=== PATIENT | male | born 1955 | race Caucasian/White ===

== ENCOUNTER 2016-08-08 14:13 | Inpatient (IN) | payer MEDICARE, MEDICAID ==
[~2016-08-08] VITALS: Ht 160 cm; Wt 78.3 kg
[2016-08-08 14:20] VITALS: BP 136/94; PULSE 131; RESP 24; TEMP 98; O2SAT 99
[2016-08-08] MEDS ORDERED: LORazepam 2 MG/ML VIAL IM ONE (14:30)
[2016-08-08] MEDS ORDERED: HALOPERIDOL LACTATE 5 MG/ML AMP IM ONE (14:30)
[2016-08-08] MEDS ORDERED: SODIUM CHLOR 0.9% 1000 ML INJ 1,000 ML IV ONE (14:45)
--- NOTE | 2016-08-08 14:47 | PD ---
HPI Chief Complaint: Altered Mental Status Time Seen by Provider: 14:27 Travel History International Travel<30 days: No Contact w/Intl Traveler<30days: No Traveled to known affect area: No History of Present Illness HPI This patient was found wandering around the roadside. He appears very psychotic and can provide no history or review of systems. He has rapid pressured speech and is talking nonsense. 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 He has never been here before. ON LICENSE OF [facility] Social History Alcohol Use: No Tobacco Use: No Substance Use: No Allergies-Medications (Allergen,Severity, Reaction): Coded Allergies: UNOBTAINABLE (Unverified , 08/08/16) Review of Systems ROS Limitations: Clinical Condition, Altered Mental Status, Uncooperative, Poor Historian Physical Exam Narrative GENERAL: Disheveled confused well-developed patient who appears psychotic . SKIN: Focused skin assessment reveals no rash and nodules. Skin is Warm and dry. HEAD: Atraumatic. Normocephalic. EYES: Pupils equal and round. No scleral icterus. No injection or drainage. ENT: No nasal bleeding or discharge. Mucous membranes pink and dry . NECK: Trachea midline. No JVD. CARDIOVASCULAR: Regular rate and rhythm. No murmur appreciated. Tachycardic at 120 RESPIRATORY: No accessory muscle use. Clear to auscultation. Breath sounds equal bilaterally. GASTROINTESTINAL: Abdomen soft, non-tender, nondistended. Hepatic and splenic margins not palpable. MUSCULOSKELETAL: No obvious deformities. No clubbing. No cyanosis. No edema. NEUROLOGICAL: Awake and very animated. No obvious cranial nerve deficits. Impossible to accurately gauge motor strength or sensation. Rapid pressured and very difficult to understand speech. PSYCHIATRIC: Very agitated mood and affect; insight and judgment are extremely poor. Data Data Last Documented VS Vital Signs Date Time Temp Pulse Resp B/P Pulse Ox O2 Delivery O2 Flow Rate FiO2 08/08/16 14:20 98.0 131 24 136/94 99 Orders Lorazepam Inj (Ativan Inj) (08/08/16 14:30) Haloperidol Inj (Haldol Inj) (08/08/16 14:30) Iv Access Insert/Monitor (08/08/16 14:29) Complete Blood Count With Diff (08/08/16 14:29) Basic Metabolic Panel (Bmp) (08/08/16 14:29) Alcohol (Ethanol) (08/08/16 14:29) Drug Screen, Random Urine (08/08/16 14:29) Sodium Chlor 0.9% 1000 Ml Inj (Ns 1000 M (08/08/16 14:45) Ct Brain W/O Iv Contrast(Rout) (08/08/16 ) Midazolam Inj (Versed Inj) (08/08/16 16:45) Midazolam Inj (Versed Inj) (08/08/16 16:36) Psych Screen (08/08/16 17:16) Labs Laboratory Tests Test 08/08/16 08/08/16 08/08/16 14:45 15:30 15:55 White Blood Count 12.8 TH/MM3 Red Blood Count 4.99 MIL/MM3 Hemoglobin 15.6 GM/DL Hematocrit 45.8 % Mean Corpuscular Volume 91.7 FL Mean Corpuscular Hemoglobin 31.3 PG Mean Corpuscular Hemoglobin 34.2 % Concent Red Cell Distribution Width 13.0 % Platelet Count 340 TH/MM3 Mean Platelet Volume 7.6 FL Neutrophils (%) (Auto) 85.5 % Lymphocytes (%) (Auto) 8.0 % Monocytes (%) (Auto) 6.2 % Eosinophils (%) (Auto) 0.0 % Basophils (%) (Auto) 0.3 % Neutrophils # (Auto) 10.9 TH/MM3 Lymphocytes # (Auto) 1.0 TH/MM3 Monocytes # (Auto) 0.8 TH/MM3 Eosinophils # (Auto) 0.0 TH/MM3 Basophils # (Auto) 0.0 TH/MM3 CBC Comment DIFF FINAL Differential Comment Urine Opiates Screen NEG Urine Barbiturates Screen NEG Urine Amphetamines Screen NEG Urine Benzodiazepines Screen NEG Urine Cocaine Screen NEG Urine Cannabinoids Screen NEG Sodium Level 140 MEQ/L Potassium Level 3.5 MEQ/L Chloride Level 107 MEQ/L Carbon Dioxide Level 18.9 MEQ/L Anion Gap 14 MEQ/L Blood Urea Nitrogen 31 MG/DL Creatinine 1.03 MG/DL Estimat Glomerular Filtration 74 ML/MIN Rate Random Glucose 84 MG/DL Calcium Level 8.0 MG/DL Ethyl Alcohol Level LESS THAN 3 MG/DL MDM Medical Decision Making Medical Screen Exam Complete: Yes Emergency Medical Condition: Yes Medical Record Reviewed: Yes Differential Diagnosis Psychosis, alcohol or drug withdrawal, dehydration, brain tumor Narrative Course I have reviewed the patient's electronic medical record. Patient is never been here before For the patient's own safety is placed in leather restraints. He is appearing psychotic and actively flailing and uncooperative. I gave him injection of Haldol and Ativan 1 L normal saline IV CBC is normal Metabolic profile is normal Alcohol level is negative Tox screen is negative Brain CT is normal Patient is now resting comfortably and out of restraints I can't find any medical reason for his psychotic-appearing behavior. He does not appear to be in withdrawal. His workup is negative I've ordered psychiatric evaluation. When I ask him if he is agreeable he nods. I think the best thing for this patient is to be a psychiatric admission. Disposition will be per psychiatry after screening Diagnosis Primary Impression: Psychosis Qualified Code: F29 - Psychosis, unspecified psychosis type Ming Callahan MD Aug 08, 2016 14:47
[2016-08-08 15:09] LABS: AUTOMATED NEUTROPHIL # 10.9 TH/MM3 (1.8-7.7); BASOPHIL % 0.3 % (0.0-2.0); HEMATOCRIT 45.8 % (39.0-51.0); HEMO FLAGS DIFF FINAL; MEAN CELL VOLUME 91.7 FL (80.0-100.0); MEAN CORPUSCULAR HEMOGLOBIN 31.3 PG (27.0-34.0); MEAN CORPUSCULAR HGB CONC 34.2 % (32.0-36.0); MONO % 6.2 % (0.0-8.0); NEUT % 85.5 % (16.0-70.0); PLATELET COUNT 340 TH/MM3 (150-450); RED BLOOD COUNT 4.99 MIL/MM3 (4.50-5.90); WHITE BLOOD COUNT 12.8 TH/MM3 (4.0-11.0)
[2016-08-08 16:30] LABS: ANION GAP 14 MEQ/L (5-15); BICARBONATE 18.9 MEQ/L (21.0-32.0); BLOOD UREA NITROGEN 31 MG/DL (7-18); CHLORIDE 107 MEQ/L (98-107); GLOMERULAR FILTRATION RATE 74 ML/MIN (>89); POTASSIUM 3.5 MEQ/L (3.5-5.1); SODIUM (NA) 140 MEQ/L (136-145)
[2016-08-08 16:33] LABS: AMPHETAMINE, URINE NEG (NEG); BARBITURATES, URINE NEG (NEG); COCAINE, URINE NEG (NEG)
[2016-08-08] MEDS ORDERED: MIDAZOLAM HCL 5 MG/ML VIAL (1 ML) ONE (16:36)
[2016-08-08] MEDS ORDERED: MIDAZOLAM HCL 5 MG/5 ML VIAL IV PUSH ONE (16:45)
--- NOTE | 2016-08-08 17:01 | RADRPT ---
EXAM DATE/TIME: 08/08/2016 16:45 [facility] COMPARISON: No previous studies available for comparison. INDICATIONS : Altered mental status. RADIATION DOSE: 56.35 CTDIvol (mGy) MEDICAL HISTORY : Non-responsive. SURGICAL HISTORY : Non-responsive. ENCOUNTER: Initial ACUITY: 1 day PAIN SCALE: Non-responsive LOCATION: Bilateral head TECHNIQUE: Multiple contiguous axial images were obtained of the head. Using automated exposure control and adj ustment of the mA and/or kV according to patient size, radiation dose was kept as low as reasonably a chievable to obtain optimal diagnostic quality images. FINDINGS: There is no evidence for intracranial hemorrhage, mass effect, mass lesions, edema, or extra-axial fl uid collections. The visualized bony structures appear intact. The ventricles are normal size for t he patient's age. There are no signs of acute infarction for technique. CONCLUSION: Unremarkable study. Rogelio Green MD on August 08, 2016 at 16:57 Board Certified Radiologist. This report was verified electronically.
[2016-08-08 19:05] VITALS: BP 151/88; PULSE 98; RESP 18; O2SAT 96
[2016-08-08 22:28] VITALS: BP 133/60; PULSE 80; RESP 18; O2SAT 99
[2016-08-09 02:09] VITALS: BP 143/74; PULSE 102; RESP 18
[2016-08-09 06:12] VITALS: BP 123/63; PULSE 97; RESP 18
[2016-08-09] MEDS ORDERED: OLANZapine IM 10 MG VIAL IM ONE (08:00)
[2016-08-09] MEDS: OLANZapine 5 MG TAB PO SCH ×2 (09:00→21:00)
[2016-08-09] MEDS ORDERED: LORazepam 2 MG/ML VIAL IM PRN (09:15)
[2016-08-09] MEDS ORDERED: ALUMINUM/MAGNESIUM/SIMETH 30 ML CUP PO PRN (09:15)
[2016-08-09] MEDS: NICOTINE 21 MG/24 HR PATCH T-DERMAL SCH (09:15)
[2016-08-09] MEDS ORDERED: MAGNESIUM HYDROXIDE SUSP 30 ML CUP PO PRN (09:15)
[2016-08-09] MEDS ORDERED: LORazepam 0.5 MG TAB PO PRN (09:15)
[2016-08-09] MEDS ORDERED: ACETAMINOPHEN 325 MG TAB PO PRN (09:15)
--- NOTE | 2016-08-09 09:24 | HHI.HP ---
Provisional Diagnosis Admission Date [place] I. Unspecified psychosis, rule out bipolar disorder, manic episode, with psychosis , rule out schizoaffective disorder, rule out medically induced psychosis [place] II. Deferred [place] III. unknown Certification of Person's Competence To Provide Express and Informed Consent I have personally examined Kimmy Sheridan , a person being served at [facility] on, August 09, 2016 09:09. Express and informed consent means consent voluntarily given in writing, by a competent person, after sufficient explanation and disclosure of the subject matter involved to enable the person to make a knowing and willful decision without any element of force, fraud, deceit, duress, or other form of constraint or coercion. This person is 18 years of age or older, is not now known to be incompetent to consent to treatment with a guardian advocate, and does not have a health care surrogate or proxy currently making medical treatment decisions. I have found this person to be one of the following: [] Competent to provide express and informed consent, as defined above, for voluntary admission to this facility and is competent to provide express and informed consent for treatment. He/she has the consistent capacity to make well reasoned, willful, and knowing decisions concerning his or her medical or mental health treatment. The person fully and consistently understands the purpose of the admission for examination/placement and is fully capable of personally exercising all rights assured under [place] [] Incompetent to provide express and informed consent to voluntary admission, and this is incompetent to provide express and informed consent to treatment. The person must be transferred to involuntary status and a petition for a guardian advocate filed with the Circuit Court. [X] Refusing to provide express and informed consent to voluntary admission but is competent to provide express and informed consent for treatment. The person must be discharged or transferred to involuntary status. Form shall be completed within 24 hours of a person's arrival at the receiving facility and filed in the clinical record of each person: 1. Admitted on a voluntary basis 2. Permitted to provide express and informed consent to his/her own treatment 3. Allowed to transfer from involuntary to voluntary status 4. Prior to permitting a person to consent to his or her own treatment after having been previously found incompetent to consent to treatment. History of Present Illness Capacity: Has Capacity HPI The patient is a 60-year-old man, well known social/medical, psychiatric history, patient was Sanchez acted by police due to disorganized behavior in the street. On psychiatric evaluation patient is restless, very disorganized, tangential, talkative, with marked pressured speech, labile, affect, also paranoid and grandiose delusions. Patient explains that he comes from [place], he says that he took a bus in [place] and came to [place] " because I wanted to see the [place]". Patient says that he doesn't have psychiatric history, he denies bipolar disorder he denies schizophrenia and he says that he hates psychiatric. When was asked about medical history he says that he has history of TBI, and he has been taking steroids, but he doesn't clarify. Patient denies taking psychotropics. He described his mood as extremely happy, he says that he is God and the [place] of the universe, for this reason he doesn't need to take any medications, at some point he also stated that he is better to everybody to be naked he was ready actually to disrobe. Patient was not redirectable verbally, extremely intrusive and agitated. Finally was medicated with olanzapine 10 mg IM to help him to calm down. Review of Systems ROS Limitations: Uncooperative Endocrine: DENIES: Heat/cold intolerance, Polydipsia, Polyuria, Polyphagia Eyes: DENIES: Blurred vision, Diplopia, Eye inflammation, Eye pain, Vision loss , Photosensitivity, Double Vision Ears, nose, mouth, throat: DENIES: Tinnitus, Hearing loss, Vertigo, Nasal discharge, Oral lesions, Throat pain, Hoarseness, Ear Pain, Running Nose, Epistaxis, Sinus Pain, Toothache, Odynophagia Respiratory: DENIES: Apneas, Cough, Snoring, Wheezing, Hemoptysis, Sputum production, Shortness of breath Cardiovascular: DENIES: Chest pain, Palpitations, Syncope, Dyspnea on Exertion , PND, Lower Extremity Edema, Orthopnea, Claudication Gastrointestinal: DENIES: Abdominal pain, Black stools, Bloody stools, Constipation, Diarrhea, Nausea, Vomiting, Difficulty Swallowing, Anorexia Genitourinary: DENIES: Sexual dysfunction, Urinary frequency, Urinary incontinence, Urgency, Hematuria, Dysuria, Nocturia, Penile Discharge, Testicular Pain, Testicular Swelling Musculoskeletal: DENIES: Joint pain, Muscle aches, Stiffness, Joint Swelling, Back pain, Neck pain Integumentary: DENIES: Abnormal pigmentation, Nail changes, Pruritus, Rash Hematologic/lymphatic: DENIES: Bruising, Lymphadenopathy Immunologic/allergic: DENIES: Eczema, Urticaria Neurologic: DENIES: Abnormal gait, Headache, Localized weakness, Paresthesias, Seizures, Speech Problems, Tremor, Poor Balance Psychiatric: DENIES: Anxiety, Confusion, Mood changes, Depression, Hallucinations, Agitation, Suicidal Ideation, Homicidal Ideation, Delusions Substance Abuse History Drugs/Alcohol past 12 months He denies, toxicology is negative and BAL is negative Past Family Social History Coded Allergies: Penicillin (Verified Allergy, Unknown, 08/09/16) No Active Prescriptions or Reported Meds Current Medications Medications (Trade) Dose Ordered Sig/Elvira Route Start Time Stop Time Status Last Admin (ZyPREXA) 5 mg BID PO 08/09/16 09:00 Family History Unknown Social History Patient says that he is from [place], but he doesn't cooperate and provide more information Physical Exam Patient is restless, agitated, Vital Signs Vital Signs Date Time Temp Pulse Resp B/P Pulse Ox O2 Delivery O2 Flow Rate FiO2 08/09/16 06:12 97 18 123/63 08/08/16 22:28 99 Room Air 08/08/16 14:20 98.0 Lab Results BAL is negative, toxicology is negative, CT scan of the brain shows no acute abnormalities, WBC is 12.8 Mental Status Examination Appearance Short stature overweight man, [facility], restless, poorly cooperative, no reliable Speech: Rapid, Incoherent (at times), Fast, Other (pressure) Orientation: Person Memory: Impaired (describe) Thought Process: Loose Association, Tangential Thought Content: Bizarre thinking, Paranoid Hallucination Type: None Suicidal Ideation: No Homicidal Ideation: No Insight: Poor Affect: Irritable, Other Affect if Inappropriate: Labile Mood: Angry Motor Activity: Normal gait Assessment & Plan Problem List: (1) Unspecified psychosis Assessment & Plan: On psychiatric evaluation patient is acutely manic, disorganized, tangential very paranoid, with marked pressured and at times incoherent speech, restlessness, agitation, disruptive in the unit. Patient is unable to provide any significant or reliable information about his social, psychiatric or medical history. At this moment is impossible to define the etiology of current presentation, further medical workup is needed in order to rule out medical causes of psychosis/cindy. A relapse of a previously diagnosed bipolar disorder/or primary psychotic disorder is also possible. Patient definitely represents an acute danger to self and others and needs psychiatric hospitalization for stabilization and safety. Will start olanzapine 5 mg twice a day for psychosis/cindy. Will order EKG, for QTC baseline. Will consult hospitalist to do a thorough medical investigation. Will consider psychiatry for second opinion. insulation worker interior surface intervention to help with collateral information, counseling, psychosocial assessment, to start discharge planning. We'll take safety measures as needed. We will discuss which are she nurse the convenience of acute inpatient versus [facility] unit. ICD Code: F29 Assessment & Plan Estimated LOS: days Ronal Avila MD August 09, 2016 09:24
[2016-08-09 10:46] VITALS: BP 135/60; PULSE 88; RESP 18; O2SAT 100
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
[2016-08-09] MEDS: LORazepam 1 MG TAB PO PRN (16:07)
[2016-08-09 16:40] VITALS: BP 120/78; PULSE 92; RESP 20; TEMP 98; O2SAT 94
[2016-08-09] MEDS ORDERED: diphenhydrAMINE HCL 50 MG/ML VIAL ONE (18:40)
[2016-08-09] MEDS ORDERED: HALOPERIDOL LACTATE 5 MG/ML AMP ONE (18:40)
[2016-08-09] MEDS ORDERED: LORazepam 2 MG/ML VIAL ONE (18:43)
[2016-08-09] MEDS ORDERED: HALOPERIDOL LACTATE 5 MG/ML AMP IM PRN (19:00)
[2016-08-09] MEDS ORDERED: LORazepam 2 MG/ML VIAL IM ONE (19:00)
[2016-08-09] MEDS ORDERED: HALOPERIDOL LACTATE 5 MG/ML AMP IM ONE (19:00)
[2016-08-09] MEDS ORDERED: diphenhydrAMINE HCL 50 MG/ML VIAL IM ONE (19:00)
[2016-08-09] MEDS: REMOVE OLD NICODERM (NICOTINE) PATCH T-DERMAL SCH (21:00)
[2016-08-10 05:56] VITALS: BP 138/79; PULSE 97; RESP 18; TEMP 97.2; O2SAT 96
[2016-08-10] MEDS: NICOTINE 21 MG/24 HR PATCH T-DERMAL SCH (09:00)
--- NOTE | 2016-08-10 09:35 | PD.CONS ---
Provisional Diagnosis Admission Date August 09, 2016 at 09:08 Dorothy I. 1. Other psychotic disorder Suspect primary psychotic disorder, likely schizophrenia Rule-out BPAD, mixed or manic with psychotic features Rule-out psychosis due to [facility] [place] II. Deferred Dorothy V. GAF is 31 presently History of Present Illness Service Psychiatry Consult Requested By Dr. Avila Reason for Consult Second opinion Primary Care Physician Unknown HPI From Dr. Avila's H&P: The patient is a 60-year-old man, well known social/medical, psychiatric history, patient was [place] acted by police due to disorganized behavior in the street. On psychiatric evaluation patient is restless, very disorganized, tangential, talkative, with marked pressured speech, labile, affect, also paranoid and grandiose delusions. Patient explains that he comes from [place], he says that he took a bus in [place] and came to [place] " because I wanted to see the 5 [place]". Patient says that he doesn't have psychiatric history, he denies bipolar disorder he denies schizophrenia and he says that he hates psychiatric. When was asked about medical history he says that he has history of TBI, and he has been taking steroids, but he doesn't clarify. Patient denies taking psychotropics. He described his mood as extremely happy, he says that he is God and the [place] of the universe, for this reason he doesn't need to take any medications, at some point he also stated that he is better to everybody to be naked he was ready actually to disrobe. Patient was not redirectable verbally, extremely intrusive and agitated. Finally was medicated with olanzapine 10 mg IM to help him to calm down. On my examination today: Patient seen and examined with counselor and nurse. Chart reviewed. Patient was agitated on the floor yesterday and required Haldol, Ativan and Benadryl ETO. Case discussed with nurse, counselor and recreation therapist in treatment team. On my evaluation today, the patient presents as extremely rambling and disorganized in his thought process. Much of his speech is word salad. He denies audiovisual hallucinations but appears internally preoccupied. He describes his mood as "tired." He denies any suicidal or homicidal ideation but seems distinctly unreliable contract for safety in his present state. He does seem to endorse feelings of thought manipulation. He says "I just need a form saying I can be my own payee." Psychiatric interview is limited by his current degree of psychiatric impairment. Nursing staff provides me with the number for a niece, Melody, . This number rings to voicemail, which is full and not accepting new messages. I also try to call Stephie Roy in [place], [place], . She reports that she acted as patient's payee while he was part of the ACT team in [place]. She reports that he moved to [place] with Melody about 1 month ago against the ACT team's advice. She does note that the patient is on long-acting Invega and would be due for a dose this week. She is otherwise unsure of his clinical details and refers me to Luz Marie with the ACT team in [place] for this information at [phone]. I have left a voicemail for Ms. Marie requesting a call back. Review of Systems ROS Limitations: Psychotic, Poor Historian Other ROS limited because of patient's degree of thought disorder. He does have a non -productive cough. Past Family Social History Coded Allergies: Penicillin (Verified Allergy, Unknown, 08/09/16) Past Medical History Patient may have had some sort of history of head injury; unclear. No Active Prescriptions or Reported Meds Current Medications Medications (Trade) Dose Ordered Sig/Elvira Route Start Time Stop Time Status Last Admin (ZyPREXA) 5 mg BID PO 08/09/16 09:00 Hold (Ativan) 1 mg Q6H PRN PO 08/09/16 09:15 08/09/16 16:07 (Ativan Inj) 1 mg Q6H PRN IM 08/09/16 09:15 (Ativan) 0.5 mg Q12H PRN PO 08/09/16 09:15 (Ativan Inj) 0.5 mg Q12H PRN IM 08/09/16 09:15 (Tylenol) 650 mg Q4H PRN PO 08/09/16 09:15 (Milk Of Magnesia Liq) 30 ml DAILY PRN PO 08/09/16 09:15 (Mag-Al Plus Susp Liq) 30 ml Q6H PRN PO 08/09/16 09:15 (Habitrol 21 Mg Patch.24 Hr) 1 patch DAILY T-DERMAL 08/09/16 09:15 Miscellaneous Information 1 HS T-DERMAL 08/09/16 21:00 Family History Unable to obtain from patient Social History Unable to obtain from patient. Patient's Strengths (min. 2) In a monitored setting. Appears to have support network in [place]. Physical Exam Physical examination completed by hospitalist assessment consultant. On my examination today, the patient appears to be in no acute physical distress. No motor abnormalities noted. Laboratories and vital signs reviewed: Vital Signs Vital Signs Date Time Temp Pulse Resp B/P Pulse Ox O2 Delivery O2 Flow Rate FiO2 08/10/16 05:56 97.2 97 18 138/79 96 08/09/16 10:46 Room Air Lab Results Item Value Date Time White Blood Count 12.8 TH/MM3 H 08/08/16 1445 Hemoglobin 15.6 GM/DL 08/08/16 1445 Platelet Count 340 TH/MM3 08/08/16 1445 Sodium Level 140 MEQ/L 08/08/16 1555 Potassium Level 3.5 MEQ/L 08/08/16 1555 Chloride Level 107 MEQ/L 08/08/16 1555 Carbon Dioxide Level 18.9 MEQ/L L 08/08/16 1555 Anion Gap 14 MEQ/L 08/08/16 1555 Blood Urea Nitrogen 31 MG/DL H 08/08/16 1555 Creatinine 1.03 MG/DL 08/08/16 1555 Estimat Glomerular Filtration Rate 74 ML/MIN L 08/08/16 1555 Random Glucose 84 MG/DL 08/08/16 1555 Ethyl Alcohol Level LESS THAN 3 MG/DL 08/08/16 1555 Urine Opiates Screen NEG 08/08/16 1530 Urine Barbiturates Screen NEG 08/08/16 1530 Urine Amphetamines Screen NEG 08/08/16 1530 Urine Benzodiazepines Screen NEG 08/08/16 1530 Urine Cocaine Screen NEG 08/08/16 1530 Urine Cannabinoids Screen NEG 08/08/[address] 08/08/16 0000 Signed Impressions: Service Date/Time: Monday, August 08, 2016 16:45 - CONCLUSION: Unremarkable study. Rogelio Green MD Mental Status Examination Patient is in hospital gown. He is disheveled in his grooming and hygiene are poor. He is awake and alert and oriented to person, place and date. No evidence of delirium at this time. No abnormal motor movements noted. Speech is somewhat dysarthric but not particularly pressured. Language is bordering on word salad. Fund of knowledge is difficult to assess, as is memory given his current degree of thought disorder. Mood seems fair to somewhat dysphoric, and affect is blunted tending towards flat. Thought process disorganized. Associations somewhat loose. Unclear if there is some underlying delusional material. Patient appears internally preoccupied. Denies suicidal or homicidal ideation but is unreliable to contract for safety in his present state. Insight and judgment are currently poor. Assessment & Plan Problem List: (1) Psychosis ICD Code: F29 Assessment & Plan Given the circumstances of patient's presentation here and his presentation on my examination today, I concur with Dr. Avila that the patient meets criteria for involuntary psychiatric hospitalization under the Sanchez act. I completed second opinion paperwork. I additionally believe that the patient is not presently capacitated to consent for medications or medical treatment and so have requested a healthcare surrogate and guardian advocate. I will be assuming primary care of this patient. Given reported use of Invega, I will start the patient on Invega 6mg PO at HS pending further collateral and pending approval of HCS. Ativan as needed for anxiety, Cogentin as needed for EPS, Ambien as needed for sleep. Hospitalist assessment consultant input noted and appreciated. Check a CBC and a CMP. Continue to monitor on the high acuity unit. Continue other medications and care as ordered. Discharge Planning Pending psychiatric stabilization. Patient requires psychiatric hospitalization at this time for impairments in self-care, impairments in reality construction, medication changes and high risk for decompensation in a less restrictive environment. Request HC Surrog/Guard Advoc?: Yes Problem Qualifiers (1) Psychosis: Qualified Code: F28 - Other psychotic disorder not due to substance or known physiological condition Dominick Moreno MD August 10, 2016 09:35
[2016-08-10] MEDS ORDERED: BENZTROPINE MESYLATE 1 MG TAB PO PRN (12:15)
[2016-08-10] MEDS ORDERED: BENZTROPINE MESYLATE 2 MG/2 ML VIAL IM PRN (12:15)
[2016-08-10 18:10] VITALS: BP 146/81; PULSE 103; RESP 18; TEMP 97.6; O2SAT 97
[2016-08-10] MEDS ORDERED: PALIPERIDONE ER 6 MG TAB PO SCH (21:00)
[2016-08-10] MEDS: REMOVE OLD NICODERM (NICOTINE) PATCH T-DERMAL SCH (21:00)
[2016-08-11 06:04] VITALS: BP 146/83; PULSE 92; RESP 16; TEMP 98.5; O2SAT 95
[2016-08-11] MEDS: NICOTINE 21 MG/24 HR PATCH T-DERMAL SCH (09:00)
--- NOTE | 2016-08-11 11:38 | HHI.PYPN ---
Subjective Remarks Patient seen and examined with counselor. Chart reviewed. Case discussed with nursing staff reports that the patient has been in generally good behavioral control but became irate when the binder stripper machine came to draw his blood and was cursing at the binder stripper machine. On my examination today, the patient remains fairly disorganized. He says "I need some passes to get my clothes back." He alludes to seeing "people's faces" but can't describe this in any more detail. He then points to his abdomen and says, "that thing, the tubes, stomach vagina that sperm go in." Unclear what this is in relation to, but the patient does not appear to be in any physical distress. Counselor has spoken with patient's niece and shared that collateral with me. Psychotropics remain on hold awaiting consent. Review of Systems ROS Limitations: Poor Historian Except as stated in HPI: all other systems reviewed are Neg Objective Alert: Yes [place]: Person Mood: Calm (presently) Affect: Blunted Memory Intact: Comment (not formally assessed) Hallucinations: Other (no AVH) Delusions: Yes Delusion Type: Other (bizarre) Suicidal: Ideation (no SI) Homicidal: Ideation (no HI) Insight/Judgment Poor Remarks No motor abnormalities noted. Thought process disorganized. Speech rambling. Labs Labs reviewed. Refused labs this morning. Vitals/IOs Vital Signs Date Time Temp Pulse Resp B/P Pulse Ox O2 Delivery O2 Flow Rate FiO2 08/11/16 06:04 98.5 92 16 146/83 95 08/09/16 10:46 Room Air Assessment & Plan Problem List: (1) Psychosis ICD Code: F29 Assessment & Plan Psychotropics remain on hold awaiting consent. Continue to monitor on the high acuity unit. Continue other medications and care as ordered. Justification for Cont. Inpt. Impairment in reality construction. Impairment in social function. High risk for decompensation and a restrictive environment. Discharge Planning Pending stabilization. Request HC Surrog/Guard Advoc?: Yes Problem Qualifiers (1) Psychosis: Qualified Code: F28 - Other psychotic disorder not due to substance or known physiological condition Dominick Moreno MD August 11, 2016 11:38
[2016-08-11 18:09] VITALS: BP 121/85; PULSE 88; RESP 18; TEMP 97.3; O2SAT 96
[2016-08-11] MEDS: REMOVE OLD NICODERM (NICOTINE) PATCH T-DERMAL SCH (20:59)
[2016-08-12 05:55] VITALS: BP 158/98; PULSE 89; RESP 16; TEMP 97.8; O2SAT 96
[2016-08-12] MEDS: NICOTINE 21 MG/24 HR PATCH T-DERMAL SCH (09:00)
--- NOTE | 2016-08-12 11:11 | HHI.PYPN ---
Subjective Remarks Patient seen and examined with counselor. Chart reviewed. Case discussed with nursing staff who reports that the patient has been hyperverbal. Niece has apparently called on the unit and is willing to take the patient home if he will give her $600 of his $800 disability check for expenses. She has not, yet , provided consent for psychotropics and contacting her for such issues has proven quite difficult. For me today, patient does exhibit pressured, rambling speech. He tells me, "I don't need no drugs. I need a gallon of milk." Rambles about "poison" and needing "to keep the windows shut." Affect generally is childlike and euthymic. Some tongue darting noted off of psychotropics. No physical complaints. He does seem to say that he wishes to go home with his niece and accepts the financial deal that she has put to him. Following my departure from the unit, I was contacted by nursing staff that the patient was growing agitated, and I have ordered him medicated with Haldol, Ativan and Benadryl ETO. Review of Systems ROS Limitations: Poor Historian Except as stated in HPI: all other systems reviewed are Neg Objective Alert: Yes [place]: Person Mood: Happy Affect: Euthymic (childlike) Memory Intact: Comment (not formally assessed) Hallucinations: Other (no AVH) Delusions: Yes Delusion Type: Paranoid (possibly regarding poisoning) Suicidal: Ideation (no SI) Homicidal: Ideation (no HI) Insight/Judgment Poor Remarks Besides the above, no motor abnormalities noted. Patient is a little hyperkinetic. Thought process somewhat disorganized. Speech pressured and rambling. Grooming and hygiene fair. Labs Labs reviewed. Vitals/IOs Vital Signs Date Time Temp Pulse Resp B/P Pulse Ox O2 Delivery O2 Flow Rate FiO2 08/12/16 05:55 97.8 89 16 158/98 96 08/09/16 10:46 Room Air Assessment & Plan Problem List: (1) Psychosis ICD Code: F29 Assessment & Plan Awaiting consent for psychotropic medications. Given difficulties in contacting niece for consents, will likely request a [place] guardian if we have to retain patient until [address] next . Continue to monitor on the high acuity unit. Continue other medications and care as ordered. Justification for Cont. Inpt. Impairment in reality construction. High risk for decompensation in a restrictive environment. Discharge Planning Pending psychiatric stabilization. Request HC Surrog/Guard Advoc?: Yes Problem Qualifiers (1) Psychosis: Qualified Code: F28 - Other psychotic disorder not due to substance or known physiological condition Dominick Moreno MD August 12, 2016 11:11
[2016-08-12] MEDS ORDERED: HALOPERIDOL LACTATE 5 MG/ML AMP IM STA (13:17)
[2016-08-12] MEDS ORDERED: diphenhydrAMINE HCL 50 MG/ML VIAL IM ONE (13:30)
[2016-08-12] MEDS ORDERED: LORazepam 2 MG/ML VIAL IM ONE (13:30)
[2016-08-12 16:00] VITALS: BP 155/74; PULSE 66; RESP 15; TEMP 97.7; O2SAT 96
[2016-08-12] MEDS: REMOVE OLD NICODERM (NICOTINE) PATCH T-DERMAL SCH (20:46)
[2016-08-13 06:33] VITALS: BP 127/86; PULSE 88; RESP 20; TEMP 97.4; O2SAT 96
[2016-08-13] MEDS: NICOTINE 21 MG/24 HR PATCH T-DERMAL SCH (09:00)
[2016-08-13] MEDS ORDERED: OLANZapine 5 MG TAB PO SCH (09:00)
--- NOTE | 2016-08-13 09:05 | HHI.PYPN ---
Subjective Remarks Patient seen and examined with counselor. Chart reviewed. Case discussed with nursing staff reports that the patient didn't in use to exhibit pressured speech and refused oral Zyprexa this morning, although it does appear that he subsequently accepted this. On my examination today, patient presents a s rambling and pressured. He is asking for steroids, as he apparently thinks this will treat his mental illness. He is impulsive and intrusive. No SI/HI. No evident sedation or side effects from medications. Review of Systems ROS Limitations: Poor Historian Except as stated in HPI: all other systems reviewed are Neg Objective Alert: Yes [place]: Person Mood: Happy Affect: Other (childlike) Memory Intact: Comment (not formally assessed) Hallucinations: Other (no AVH) Delusions: Yes Delusion Type: Paranoid Suicidal: Ideation (no SI) Homicidal: Ideation (no HI) Insight/Judgment Poor Remarks Possibly some tongue darting off of psychotropics but no other evident motoric abnormalities. Patient is somewhat hyperkinetic. Speech pressured. Labs Labs reviewed. Patient continues to refuse laboratories Vitals/IOs Vital Signs Date Time Temp Pulse Resp B/P Pulse Ox O2 Delivery O2 Flow Rate FiO2 08/13/16 06:33 97.4 88 20 127/86 96 08/09/16 10:46 Room Air Assessment & Plan Problem List: (1) Psychosis ICD Code: F29 Assessment & Plan Titrate Zyprexa to 10 mg twice daily. Add IM backup option. I will reorder patient's laboratories in place in order that the patient may be temporarily restrained with permission of healthcare surrogate to obtain these labs. Continue to monitor on high acuity unit. Continue other medications and care as ordered. Justification for Cont. Inpt. Impairment in reality construction. Medication changes. High risk for decompensation in a less restrictive environment. Discharge Planning Pending psychiatric stabilization. Request HC Surrog/Guard Advoc?: Yes Problem Qualifiers (1) Psychosis: Qualified Code: F28 - Other psychotic disorder not due to substance or known physiological condition Dominick Moreno MD August 13, 2016 09:05
[2016-08-13] MEDS ORDERED: OLANZapine IM 10 MG VIAL IM PRN (11:00)
[2016-08-13 17:59] VITALS: BP 134/86; PULSE 107; RESP 20; TEMP 97.6; O2SAT 96
[2016-08-13] MEDS: LORazepam 1 MG TAB PO PRN (18:17)
[2016-08-13] MEDS: OLANZapine 5 MG TAB PO SCH (20:51)
[2016-08-13] MEDS: REMOVE OLD NICODERM (NICOTINE) PATCH T-DERMAL SCH (20:51)
[2016-08-13 21:09] LABS: MEAN CORPUSCULAR HGB CONC 36.9 % (32.0-36.0)
[2016-08-13] MEDS: ZOLPIDEM TARTRATE 5 MG TAB PO PRN (23:47)
[2016-08-14 05:57] VITALS: BP 165/77; PULSE 89; RESP 20; TEMP 97.5; O2SAT 96
[2016-08-14] MEDS: NICOTINE 21 MG/24 HR PATCH T-DERMAL SCH (07:17)
[2016-08-14] MEDS: OLANZapine 5 MG TAB PO SCH ×2 (08:39→22:23)
[2016-08-14] MEDS: LORazepam 2 MG/ML VIAL IM PRN (11:09)
[2016-08-14] MEDS ORDERED: HALOPERIDOL LACTATE 5 MG/ML AMP ONE (11:30)
[2016-08-14] MEDS ORDERED: diphenhydrAMINE HCL 50 MG/ML VIAL ONE (11:30)
[2016-08-14] MEDS ORDERED: HALOPERIDOL LACTATE 5 MG/ML AMP IM ONE (12:00)
[2016-08-14] MEDS ORDERED: LORazepam 2 MG/ML VIAL IM ONE (12:00)
[2016-08-14] MEDS ORDERED: diphenhydrAMINE HCL 50 MG/ML VIAL IM ONE (12:00)
--- NOTE | 2016-08-14 13:50 | HHI.PYPN ---
Subjective Remarks Patient was seen and case discussed with nursing. Per nursing patient has been grandiose and delusional. He tried to throw urine on her this morning. He was seen this morning in bed. This poor eye contact and is uncooperative with interview. He is mumbling and can be described to have word salad. He is compliant with his medications. Objective Alert: Yes [place]: Person Mood: Oppositional Affect: Labile, Manic Memory Intact: Comment (not formally assessed) Hallucinations: Other (no AVH) Delusions: Yes Delusion Type: Paranoid Suicidal: Ideation (no SI) Homicidal: Ideation (no HI) Insight/Judgment Poor Vitals/IOs Vital Signs Date Time Temp Pulse Resp B/P Pulse Ox O2 Delivery O2 Flow Rate FiO2 08/14/16 05:57 97.5 89 20 165/77 96 Assessment & Plan Problem List: (1) Psychosis ICD Code: F29 Assessment & Plan Continue current treatment plan, patient just started with his medications Justification for Cont. Inpt. Patient will decompensate in a less restrictive setting Request HC Surrog/Guard Advoc?: Yes Problem Qualifiers (1) Psychosis: Qualified Code: F28 - Other psychotic disorder not due to substance or known physiological condition Luan Gaitan DO August 14, 2016 13:50
[2016-08-14 15:18] LABS: AUTOMATED NEUTROPHIL # 4.9 TH/MM3 (1.8-7.7); BASOPHIL % 0.6 % (0.0-2.0); EOSINOPHIL # 0.1 TH/MM3 (0-0.4); EOSINOPHIL % 0.9 % (0.0-4.0); HEMATOCRIT 42.5 % (39.0-51.0); LYMPH % 17.9 % (9.0-44.0); LYMPHOCYTE # 1.2 TH/MM3 (1.0-4.8); MEAN CELL VOLUME 90.5 FL (80.0-100.0); MEAN CORPUSCULAR HEMOGLOBIN 33.4 PG (27.0-34.0); NEUT % 71.6 % (16.0-70.0); PLATELET COUNT 323 TH/MM3 (150-450); RED CELL DISTRIBUTION WIDTH 12.5 % (11.6-17.2); WHITE BLOOD COUNT 6.9 TH/MM3 (4.0-11.0)
[2016-08-14 15:21] LABS: HEMO FLAGS AUTO DIFF
[2016-08-14 15:42] LABS: SCAN/DIFF AUTO DIFF CONFIRMED
[2016-08-14 15:43] LABS: ALKALINE PHOSPHATASE 82 U/L (45-117); ALT (GPT) 41 U/L (12-78); ANION GAP 9 MEQ/L (5-15); AST (GOT) 23 U/L (15-37); BICARBONATE 29.8 MEQ/L (21.0-32.0); BLOOD UREA NITROGEN 11 MG/DL (7-18); CHLORIDE 97 MEQ/L (98-107); GLOMERULAR FILTRATION RATE 73 ML/MIN (>89); HDL CHOLESTEROL 39.5 MG/DL (40.0-60.0); LDL CHOLESTEROL 90 MG/DL (0-99); POTASSIUM 4.5 MEQ/L (3.5-5.1); SODIUM (NA) 136 MEQ/L (136-145); TOTAL BILIRUBIN ADULT 0.3 MG/DL (0.2-1.0)
[2016-08-14] MEDS: REMOVE OLD NICODERM (NICOTINE) PATCH T-DERMAL SCH (21:00)
[2016-08-14] MEDS: ZOLPIDEM TARTRATE 5 MG TAB PO PRN (23:26)
[2016-08-15 05:46] VITALS: BP 138/86; PULSE 100; RESP 20; TEMP 98.3; O2SAT 95
[2016-08-15] MEDS: OLANZapine 5 MG TAB PO SCH ×2 (08:31→20:02)
[2016-08-15] MEDS: NICOTINE 21 MG/24 HR PATCH T-DERMAL SCH (08:32)
[2016-08-15 09:39] LABS: HEMOGLOBIN A1a 1.3 %; HEMOGLOBIN A1b 1.8 %; HEMOGLOBIN LA1C 1.7 %; HEMOGLOBIN P3 3.4 %
--- NOTE | 2016-08-15 12:19 | HHI.PYPN ---
Subjective Remarks Patient was seen and case discussed with nursing. Patient is more animated and disorganized compared to yesterday. He is elevated, hyperactive, with pressured speech. Alert and oriented 1. Difficult to understand. Responding to internal stimuli seen making various karate moves the hallway. Compliant with medications Objective Alert: Yes [place]: Person Mood: Anxious Affect: Labile, Manic Memory Intact: Comment (not formally assessed) Hallucinations: Other (no AVH) Delusions: Yes Delusion Type: Paranoid (bizarre) Suicidal: Ideation (no SI) Homicidal: Ideation (no HI) Insight/Judgment Poor Labs Test 08/14/16 12:43 White Blood Count 6.9 TH/MM3 Red Blood Count 4.70 MIL/MM3 Hemoglobin 15.7 GM/DL Hematocrit 42.5 % Mean Corpuscular Volume 90.5 FL Mean Corpuscular Hemoglobin 33.4 PG Mean Corpuscular Hemoglobin 36.9 % Concent Red Cell Distribution Width 12.5 % Platelet Count 323 TH/MM3 Mean Platelet Volume 7.9 FL Neutrophils (%) (Auto) 71.6 % Lymphocytes (%) (Auto) 17.9 % Monocytes (%) (Auto) 9.0 % Eosinophils (%) (Auto) 0.9 % Basophils (%) (Auto) 0.6 % Neutrophils # (Auto) 4.9 TH/MM3 Lymphocytes # (Auto) 1.2 TH/MM3 Monocytes # (Auto) 0.6 TH/MM3 Eosinophils # (Auto) 0.1 TH/MM3 Basophils # (Auto) 0.0 TH/MM3 CBC Comment AUTO DIFF Differential Comment AUTO DIFF CONFIRMED Sodium Level 136 MEQ/L Potassium Level 4.5 MEQ/L Chloride Level 97 MEQ/L Carbon Dioxide Level 29.8 MEQ/L Anion Gap 9 MEQ/L Blood Urea Nitrogen 11 MG/DL Creatinine 1.04 MG/DL Estimat Glomerular Filtration 73 ML/MIN Rate Random Glucose 90 MG/DL Hemoglobin A1c 5.5 % Calcium Level 8.8 MG/DL Total Bilirubin 0.3 MG/DL Aspartate Amino Transf 23 U/L (AST/SGOT) Alanine Aminotransferase 41 U/L (ALT/SGPT) Alkaline Phosphatase 82 U/L Total Protein 7.3 GM/DL Albumin 3.9 GM/DL Triglycerides Level 129 MG/DL Cholesterol Level 155 MG/DL LDL Cholesterol 90 MG/DL HDL Cholesterol 39.5 MG/DL Cholesterol/HDL Ratio 3.92 RATIO Vitals/IOs Vital Signs Date Time Temp Pulse Resp B/P Pulse Ox O2 Delivery O2 Flow Rate FiO2 08/15/16 05:46 98.3 100 20 138/86 95 Assessment & Plan Problem List: (1) Psychosis ICD Code: F29 Assessment & Plan Continue current treatment plan Justification for Cont. Inpt. Patient will decompensate in a less restrictive setting Request HC Surrog/Guard Advoc?: Yes Problem Qualifiers (1) Psychosis: Qualified Code: F28 - Other psychotic disorder not due to substance or known physiological condition Luan Gaitan DO August 15, 2016 12:19
[2016-08-15] MEDS ORDERED: LORazepam 2 MG/ML VIAL ONE (13:07)
[2016-08-15] MEDS ORDERED: diphenhydrAMINE HCL 50 MG/ML VIAL ONE (13:07)
[2016-08-15] MEDS ORDERED: HALOPERIDOL LACTATE 5 MG/ML AMP ONE (13:07)
[2016-08-15] MEDS ORDERED: diphenhydrAMINE HCL 50 MG/ML VIAL IM ONE (13:15)
[2016-08-15] MEDS ORDERED: LORazepam 2 MG/ML VIAL IM ONE (13:15)
[2016-08-15] MEDS ORDERED: HALOPERIDOL LACTATE 5 MG/ML AMP IM ONE (13:15)
[2016-08-15 18:08] VITALS: BP 139/67; PULSE 100; RESP 18; TEMP 98.4; O2SAT 97
[2016-08-15] MEDS: REMOVE OLD NICODERM (NICOTINE) PATCH T-DERMAL SCH (20:02)
[2016-08-15] MEDS: LORazepam 1 MG TAB PO PRN (20:02)
[2016-08-16 05:51] VITALS: BP 128/70; PULSE 99; RESP 17; TEMP 98; O2SAT 100
[2016-08-16] MEDS: OLANZapine 5 MG TAB PO SCH ×3 (09:00→21:34)
[2016-08-16] MEDS: NICOTINE 21 MG/24 HR PATCH T-DERMAL SCH (09:00)
--- NOTE | 2016-08-16 10:06 | HHI.PYPN ---
Subjective Remarks Patient seen and examined with counselor and nurse. Chart reviewed. Case discussed with nursing staff who reports patient required ETO medication yesterday for agitation and exposing himself. On my examination today, the patient is disorganized. His speech is rambling. He is somewhat irritable. When I observe that we are struggling to make progress with his illness so far, he says, "you're not, you're not!" Denies side effects from medications. Concludes the interval by getting up and beginning to use his bedside urinal, at which point we excuse ourselves. Review of Systems ROS Limitations: Psychotic, Poor Historian Except as stated in HPI: all other systems reviewed are Neg Objective Alert: Yes [place]: Person Mood: Anxious (irritable) Affect: Labile Memory Intact: Comment (Not assessed) Hallucinations: Other (Int stim) Delusions: No Delusion Type: Other (Difficult to ascertain given thought disorganization) Suicidal: Ideation (None) Homicidal: Ideation (None) Insight/Judgment Poor Remarks TP disorganized. Speech rambling. No motor abnormalities noted. Labs Labs reviewed. Vitals/IOs Vital Signs Date Time Temp Pulse Resp B/P Pulse Ox O2 Delivery O2 Flow Rate FiO2 08/16/16 05:51 98.0 99 17 128/70 100 Assessment & Plan Problem List: (1) Psychosis ICD Code: F29 Assessment & Plan Given ongoing behavioral disturbance and history of TBI, add Depakote DR 500mg BID. LFTs and plt ok. Plan to check a level after appropriate interval. Continue Zyprexa 10mg BID. Continue to monitor on high acuity unit. Continue other medications and care as ordered. Justification for Cont. Inpt. Impairment in reality construction. Impairment in social function. Medication changes in process. High risk for decompensation in a less restrictive environment. Discharge Planning Pending psychiatric stabilization. Request HC Surrog/Guard Advoc?: Yes Problem Qualifiers (1) Psychosis: Qualified Code: F28 - Other psychotic disorder not due to substance or known physiological condition Dominick Moreno MD August 16, 2016 10:06
[2016-08-16] MEDS: LORazepam 1 MG TAB PO PRN (15:43)
[2016-08-16 17:31] VITALS: BP 150/87; PULSE 102; RESP 20; TEMP 98.1; O2SAT 97
[2016-08-16] MEDS: REMOVE OLD NICODERM (NICOTINE) PATCH T-DERMAL SCH (21:00)
[2016-08-16] MEDS: DIVALPROEX DR 500 MG TABEC PO SCH (21:35)
[2016-08-16] MEDS: ZOLPIDEM TARTRATE 5 MG TAB PO PRN (21:35)
[2016-08-17 05:45] VITALS: BP 161/95; PULSE 95; RESP 18; TEMP 98.1; O2SAT 95
[2016-08-17] MEDS: NICOTINE 21 MG/24 HR PATCH T-DERMAL SCH (09:00)
[2016-08-17] MEDS: OLANZapine 5 MG TAB PO SCH ×2 (09:14→20:46)
[2016-08-17] MEDS: DIVALPROEX DR 500 MG TABEC PO SCH (09:14)
--- NOTE | 2016-08-17 09:45 | HHI.PYPN ---
Subjective Remarks Patient seen and examined with counselor and nurse. Chart reviewed. Case discussed with nurse, counselor and recreation therapist in treatment team. Per nursing staff who reports that the patient remains disorganized and internally preoccupied, batting at the air. Recreation therapist reports that the patient refuses groups. On my examination today, the patient is intrusive, frenetic and hyperverbal with pressured speech. He is bouncing from one foot to the other. Thought process is marginally more organized, but I may just be catching him at a good time of day. He says "I need a new wristband." He wants a day pass so "I can walk around the streets." At the same time he say, "I want to stay here and live on milk and juice." He remains internally preoccupied. No signs of sedation or side effects from medications. I did endeavor to call reji Vance ([facility]) to discuss changes to patient's pharmacotherapy, but she did not answer and her voicemail is not set up. This has been an ongoing issue, and we will be requesting a [facility] guardian at [facility] tomorrow. Review of Systems ROS Limitations: Psychotic, Poor Historian Except as stated in HPI: all other systems reviewed are Neg Objective Alert: Yes [place]: Person, Place (hospital) Mood: Anxious Affect: Labile Memory Intact: Comment (Not assessed) Hallucinations: Other (Internally preoccupied) Delusions: No Delusion Type: Other (Remains difficult to ascertain given thought disorganization) Suicidal: Ideation (No SI) Homicidal: Ideation (No HI) Insight/Judgment Poor Remarks TP remains disorganized. Intrusive on rounds; requires firm redirection by staff. Grooming/hygiene fair at best. Speech rambling, pressured. Labs Labs reviewed. Vitals/IOs Vital Signs Date Time Temp Pulse Resp B/P Pulse Ox O2 Delivery O2 Flow Rate FiO2 08/17/16 05:45 98.1 95 18 161/95 95 Assessment & Plan Problem List: (1) Psychosis ICD Code: F29 Assessment & Plan Patient's psychosis remains decompensated to a severe degree. One barrier to more expeditious treatment of this illness has been difficulty in obtaining consents for meds from [facility], which we hope to obviate by obtaining a [place] guardian tomorrow. For the time being, I will work with the meds for which we have existing consents: titrate Depakote to 750mg BID for mood stabilization and titrate Zyprexa to 15mg BID for psychosis and mood stabilization. Patient remains quite frenzied, and I am told by nursing staff that this is more or less continuous. Concerned therefore about possible CK elevation/rhabdo. Check CK and BMP. Continue to monitor on high acuity unit. Continue other medications and care as ordered. Justification for Cont. Inpt. Impairment in reality construction. Medication changes in process. High risk for decompensation in a less restrictive environment. Discharge Planning Pending psychiatric stabilization. Request HC Surrog/Guard Advoc?: Yes Problem Qualifiers (1) Psychosis: Qualified Code: F28 - Other psychotic disorder not due to substance or known physiological condition Dominick Moreno MD August 17, 2016 09:45
[2016-08-17] MEDS: DIVALPROEX SODIUM DELAYED RELEASE 250 MG TAB PO SCH ×2 (20:45→21:00)
[2016-08-17] MEDS: ZOLPIDEM TARTRATE 5 MG TAB PO PRN (20:46)
[2016-08-17] MEDS: REMOVE OLD NICODERM (NICOTINE) PATCH T-DERMAL SCH (21:00)
[2016-08-18] MEDS: NICOTINE 21 MG/24 HR PATCH T-DERMAL SCH (09:00)
[2016-08-18] MEDS: OLANZapine 5 MG TAB PO SCH ×2 (10:48→20:12)
[2016-08-18] MEDS: DIVALPROEX SODIUM DELAYED RELEASE 250 MG TAB PO SCH ×2 (10:48→20:13)
--- NOTE | 2016-08-18 13:56 | HHI.PYPN ---
Subjective Remarks Patient seen and examined. Chart reviewed. Case discussed with nursing staff who reports that the patient has been somewhat more seclusive to room today. On my examination today, the patient remains hyperverbal and fidgety. Seeing me coming to his room he says "Hello! Yes, sir! I had a urine bottle filled up. I need extra portions." Thought process once again seems a little more organized, although he remains quite scattered overall. No SI/HI. Denies side effects from meds. Somewhat intrusive, and he comes up to me later on rounds with his bedside urinal and says, "This is my urine!" Review of Systems ROS Limitations: Psychotic, Poor Historian Except as stated in HPI: all other systems reviewed are Neg Objective Alert: Yes [place]: Person, Place Mood: Other (elevated) Affect: Other (expansive) Memory Intact: Comment (Not assessed) Hallucinations: Other (Remains int stim) Delusions: No Delusion Type: Other (No delusions) Suicidal: Ideation (No SI) Homicidal: Ideation (No HI) Insight/Judgment Poor Remarks TP disorganized overall. Speech rambling. No new abnormal motor movements noted. Labs Refused labs. Vitals/IOs Vital Signs Date Time Temp Pulse Resp B/P Pulse Ox O2 Delivery O2 Flow Rate FiO2 08/17/16 05:45 98.1 95 18 161/95 95 Assessment & Plan Problem List: (1) Psychosis ICD Code: F29 Assessment & Plan Continue Depakote and Zyprexa as ordered; patient just received his first dose of VPA 750mg this morning. Pending outcome of [address] tomorrow, will likely plan to modify antipsychotic therapy as response to Zyprexa does not seem terribly robust. Continue to monitor on the high acuity unit in the meantime. Continue other medications and care as ordered. Justification for Cont. Inpt. Impairment in reality construction. Planned medication changes. High risk for decompensation in a less restrictive environment. 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
[2016-08-18 17:15] VITALS: BP 161/84; PULSE 95; RESP 16; TEMP 97.9; O2SAT 97
[2016-08-18] MEDS: LORazepam 1 MG TAB PO PRN (20:12)
[2016-08-18] MEDS: ZOLPIDEM TARTRATE 5 MG TAB PO PRN (20:13)
[2016-08-18] MEDS: REMOVE OLD NICODERM (NICOTINE) PATCH T-DERMAL SCH (21:00)
[2016-08-19 06:07] VITALS: BP 161/82; PULSE 85; RESP 18; TEMP 97.5; O2SAT 96
[2016-08-19] MEDS: NICOTINE 21 MG/24 HR PATCH T-DERMAL SCH (09:00)
[2016-08-19] MEDS: DIVALPROEX SODIUM DELAYED RELEASE 250 MG TAB PO SCH ×2 (09:16→20:42)
[2016-08-19] MEDS: OLANZapine 5 MG TAB PO SCH (09:18)
[2016-08-19] MEDS: LORazepam 1 MG TAB PO PRN (09:18)
--- NOTE | 2016-08-19 10:16 | HHI.PYPN ---
Subjective Remarks Patient seen and examined. Chart reviewed. Case discussed with nursing staff who reports patient remains fairly frenzied and hyperkinetic. I note that he only slept 1 hour last night. For me today, the patient remains hyperverbal, rambling, pressured and restless. He is somewhat intrusive. Thought process remains marginally more organized versus admission but still quite disorganized overall. No evidence side effects from medications. No physical complaints. Review of Systems ROS Limitations: Psychotic, Poor Historian Except as stated in HPI: all other systems reviewed are Neg Objective Alert: Yes [place]: Person, Place Mood: Anxious Affect: Blunted Memory Intact: Comment (Not assessed) Hallucinations: Other (internally preoccupied) Delusions: No Delusion Type: Other (No delusions) Suicidal: Ideation (No SI) Homicidal: Ideation (No HI) Insight/Judgment Poor Remarks No new motor abnormalities noted although the patient does remain quite fidgety. Thought process disorganized. Speech pressured and rambling. Grooming and hygiene fair. Labs Labs reviewed. Vitals/IOs Vital Signs Date Time Temp Pulse Resp B/P Pulse Ox O2 Delivery O2 Flow Rate FiO2 08/19/16 06:07 97.5 85 18 161/82 96 Assessment & Plan Problem List: (1) Psychosis ICD Code: F29 Assessment & Plan Given reported previously good response to paliperidone, start paliperidone 6 mg at bedtime. Could consider Invega Sustenna if efficacious. I will taper Zyprexa to 7.5 mg twice daily. Continue Depakote as ordered, and I have ordered a Depakote level for over the weekend. Continue to monitor on the high acuity unit. I have ordered a CK as well as a CBC and CMP and placed in order for the patient to be temporarily restrained if needed to obtain laboratories with consent of guardian advocate. The patient's case was presented to the [facility] act court and he was retained and a [facility] guardian was ordered. Justification for Cont. Inpt. Impairment in reality construction. Medication changes and process. High risk for decompensation in a less restrictive environment. Discharge Planning Pending psychiatric stabilization Request HC Surrog/Guard Advoc?: Yes Problem Qualifiers (1) Psychosis: Qualified Code: F28 - Other psychotic disorder not due to substance or known physiological condition Dominick Moreno MD August 19, 2016 10:16
[2016-08-19] MEDS ORDERED: PILL SPLITTER OTHER PRN (12:45)
[2016-08-19 16:45] VITALS: BP 124/79; PULSE 81; RESP 18; TEMP 98.1; O2SAT 100
[2016-08-19] MEDS: REMOVE OLD NICODERM (NICOTINE) PATCH T-DERMAL SCH (20:45)
[2016-08-19] MEDS ORDERED: OLANZapine 5 MG TAB PO SCH (21:00)
[2016-08-19] MEDS ORDERED: PALIPERIDONE ER 6 MG TAB PO SCH (21:00)
[2016-08-20] MEDS: NICOTINE 21 MG/24 HR PATCH T-DERMAL SCH (09:00)
[2016-08-20] MEDS: DIVALPROEX SODIUM DELAYED RELEASE 250 MG TAB PO SCH ×2 (09:00→20:39)
--- NOTE | 2016-08-20 09:18 | HHI.PYPN ---
Subjective Remarks Patient seen and examined with nurse. Chart reviewed. Case discussed with RN who reports that the patient slept much of the day yesterday following court hearing. On my examination today, patient presents as sullen and withdrawn. He has the covers pulled tightly around his head and refuses to sit up. Thought process remains disorganized overall. Speech is rambling. He refuses physical exam, saying "you cannot!" when I ask if I may examine him. Endorses some vague AH. Denies side effects from meds. Review of Systems ROS Limitations: Uncooperative, Psychotic, Poor Historian Except as stated in HPI: all other systems reviewed are Neg Objective Alert: Yes [place]: Person, Place Mood: Oppositional, Other (Dysphoric) Affect: Restricted Memory Intact: Comment (Not assessed) Hallucinations: Other (C/o vague AH. Appears internally preoccupied.) Delusions: No Delusion Type: Other (No delusions) Suicidal: Ideation (No SI) Homicidal: Ideation (No HI) Insight/Judgment Poor Remarks TP disorganized. Refuses PE but no abnormal motor movements noted grossly. Speech remains rambling, garbled and difficult to follow. Labs Labs reviewed. No new labs. Vitals/IOs Vital Signs Date Time Temp Pulse Resp B/P Pulse Ox O2 Delivery O2 Flow Rate FiO2 08/19/16 16:45 98.1 81 18 124/79 100 Assessment & Plan Problem List: (1) Psychosis ICD Code: F29 Assessment & Plan Patient less frenetic but quite sullen and withdrawn today; differential would include increasing irritability in setting of a prolonged manic state or a switch to the other pole of a psychotic illness with affective overlay. Complete cross-taper Zyprexa to Invega. D/c Zyprexa and titrate Invega to 9mg qHS tonight. Plan for Sustenna if Invega PO is efficacious. Continue Depakote as ordered. Continue to monitor on high acuity unit. Continue other medications and care as ordered. Justification for Cont. Inpt. Med changes in process. Impairment in reality construction. High risk for decompensation in a less restrictive environment. Discharge Planning Pending psychiatric stabilization. Request HC Surrog/Guard Advoc?: Yes Problem Qualifiers (1) Psychosis: Qualified Code: F28 - Other psychotic disorder not due to substance or known physiological condition Dominick Moreno MD August 20, 2016 09:18
[2016-08-20] MEDS: LORazepam 1 MG TAB PO PRN (10:43)
[2016-08-20 10:56] LABS: HEMATOCRIT 47.1 % (39.0-51.0); MEAN CELL VOLUME 93.1 FL (80.0-100.0); MEAN CORPUSCULAR HEMOGLOBIN 31.1 PG (27.0-34.0); MEAN CORPUSCULAR HGB CONC 33.3 % (32.0-36.0); PLATELET COUNT 401 TH/MM3 (150-450); RED BLOOD COUNT 5.06 MIL/MM3 (4.50-5.90); RED CELL DISTRIBUTION WIDTH 12.9 % (11.6-17.2); WHITE BLOOD COUNT 7.9 TH/MM3 (4.0-11.0)
[2016-08-20 10:57] LABS: HEMO FLAGS AUTO DIFF
[2016-08-20 11:07] LABS: ALKALINE PHOSPHATASE 76 U/L (45-117); ALT (GPT) 21 U/L (12-78); ANION GAP 8 MEQ/L (5-15); AST (GOT) 12 U/L (15-37); BICARBONATE 29.6 MEQ/L (21.0-32.0); BLOOD UREA NITROGEN 13 MG/DL (7-18); CHLORIDE 102 MEQ/L (98-107); GLOMERULAR FILTRATION RATE 96 ML/MIN (>89); POTASSIUM 5.6 MEQ/L (3.5-5.1); SODIUM (NA) 140 MEQ/L (136-145); TOTAL BILIRUBIN ADULT 0.4 MG/DL (0.2-1.0)
[2016-08-20 11:09] LABS: CREATINE KINASE 68 U/L (39-308)
[2016-08-20 12:29] LABS: BANDS 1 % (0-6); BASOPHILS 1 % (0-2); EOSINOPHILS 3 % (0-4); NEUTROPHIL # MANUAL DIFF 4.1 TH/MM3 (1.8-7.7); POLYS (SEG NEUTROPHILS) 51 % (16-70); WBC DIFF SAMPLE 100
[2016-08-20 12:30] LABS: PLATELET ESTIMATE SMEAR NORMAL (NORMAL); PLATELET MORPHOLOGY NORMAL (NORMAL); SCAN/DIFF FINAL DIFF MANUAL
[2016-08-20] MEDS: SODIUM POLYSTYRENE SULFONATE SUSP 15 GM/60 ML CUP PO ONE (13:00)
[2016-08-20 15:45] VITALS: BP 132/81; PULSE 110; RESP 20; TEMP 97.4; O2SAT 97
[2016-08-20] MEDS ORDERED: SODIUM POLYSTYRENE SULFONATE SUSP 15 GM/60 ML CUP PO ONE (16:00)
[2016-08-20] MEDS: REMOVE OLD NICODERM (NICOTINE) PATCH T-DERMAL SCH (21:00)
[2016-08-20] MEDS ORDERED: PALIPERIDONE ER 3 MG TAB PO SCH (21:45)
[2016-08-21 06:35] VITALS: BP 140/70; PULSE 100; RESP 19; TEMP 98.7; O2SAT 97
[2016-08-21] MEDS: NICOTINE 21 MG/24 HR PATCH T-DERMAL SCH (09:00)
[2016-08-21] MEDS: DIVALPROEX SODIUM DELAYED RELEASE 250 MG TAB PO SCH ×2 (09:40→21:36)
[2016-08-21 10:50] LABS: POTASSIUM 4.1 MEQ/L (3.5-5.1)
--- NOTE | 2016-08-21 13:45 | HHI.PYPN ---
Subjective Remarks Patient seen and examined with nurse. Chart reviewed. Case discussed with nursing staff. On my examination today, the patient seems more organized. He remains little fidgety and hyperkinetic and his speech is somewhat pressured but much more coherent and in its content more reasonable. Affect is bright and euthymic. Denies side effects from medications. No physical complaints. Review of Systems ROS Limitations: Poor Historian Except as stated in HPI: all other systems reviewed are Neg Objective Alert: Yes [place]: Person, Place Mood: Happy Affect: Euthymic Memory Intact: Comment (Not assessed) Hallucinations: Other (no AVH) Delusions: No Delusion Type: Other (no delusional material) Suicidal: Ideation (no suicidal ideation) Homicidal: Ideation (no homicidal ideation) Insight/Judgment Poor Remarks No new motor abnormalities noted. Thought process more linear today. Labs Test 08/21/16 09:35 Potassium Level 4.1 MEQ/L Ammonia 54 MCMOL/L Valproic Acid (Depakene) Level 100 MCG/ML Labs reviewed. Potassium level within normal limits following administration of Kayexalate. Depakote level within the therapeutic range. Ammonia level mildly elevated with no signs of hyperammonemic encephalopathy. Vitals/IOs Vital Signs Date Time Temp Pulse Resp B/P Pulse Ox O2 Delivery O2 Flow Rate FiO2 08/21/16 06:35 98.7 100 19 140/70 97 Assessment & Plan Problem List: (1) Psychosis Assessment & Plan: History of traumatic brain injury. ICD Code: F29 Assessment & Plan Patient has responded nicely to Invega PO and is tolerating this agent well without side effects. Start Invega Sustenna 234mg IM today. Discontinue oral Invega as this agent does not require oral supplementation. Continue Depakote as ordered. Order Carnitor for hyperammonemia and plan to recheck ammonia level Tuesday morning. Continue to monitor on the high acuity unit. Continue other medications and care as ordered. Justification for Cont. Inpt. Medication changes in process. High risk for decompensation in a less restrictive environment pending psychiatric stabilization. Discharge Planning Pending psychiatric stabilization. Request HC Surrog/Guard Advoc?: Yes Problem Qualifiers (1) Psychosis: Qualified Code: F28 - Other psychotic disorder not due to substance or known physiological condition Dominick Moreno MD August 21, 2016 13:45
[2016-08-21] MEDS ORDERED: PALIPERIDONE PALMITATE 234 MG/1.5 ML SYRINGE IM ONE (14:30)
[2016-08-21 16:41] VITALS: BP 146/97; PULSE 101; RESP 19; TEMP 97.7; O2SAT 98
[2016-08-21] MEDS: levOCARNitine 10% ORAL SOLN 118 ML BTL PO SCH (18:00)
[2016-08-21] MEDS: REMOVE OLD NICODERM (NICOTINE) PATCH T-DERMAL SCH (21:00)
[2016-08-22 06:00] VITALS: BP 129/72; PULSE 79; RESP 17; TEMP 97.2
[2016-08-22] MEDS: NICOTINE 21 MG/24 HR PATCH T-DERMAL SCH (09:00)
[2016-08-22] MEDS: levOCARNitine 10% ORAL SOLN 118 ML BTL PO SCH ×3 (10:11→18:00)
[2016-08-22] MEDS: DIVALPROEX SODIUM DELAYED RELEASE 250 MG TAB PO SCH ×3 (10:11→21:35)
--- NOTE | 2016-08-22 10:23 | HHI.PYPN ---
Subjective Remarks Patient seen in his room with nurse Haydee, patient calm to somewhat irritable somewhat disorganized in his responses with me today he's vague about any auditory hallucinations though is feeling better there is still manic behaviors noted with them. Depakote level drawn on I08/21 is 100 Review of Systems Except as stated in HPI: all other systems reviewed are Neg Objective Alert: Yes [place]: Person, Place Mood: Happy Affect: Euthymic Memory Intact: Comment (Not assessed) Hallucinations: Other (no AVH) Delusions: No Delusion Type: Other (no delusional material) Suicidal: Ideation (no suicidal ideation) Homicidal: Ideation (no homicidal ideation) Insight/Judgment Poor Vitals/IOs Vital Signs Date Time Temp Pulse Resp B/P Pulse Ox O2 Delivery O2 Flow Rate FiO2 08/22/16 06:00 97.2 79 17 129/72 08/21/16 16:41 98 Assessment & Plan Problem List: (1) Psychosis ICD Code: F29 Assessment & Plan Estimated LOS: days patient remains somewhat manic vigilant and paranoid. Though compliant medication for now continue treatment Justification for Cont. Inpt. At this time patient will decompensate if placed in a lower level of care Discharge Planning To be determined Request HC Surrog/Guard Advoc?: Yes Problem Qualifiers (1) Psychosis: Qualified Code: F28 - Other psychotic disorder not due to substance or known physiological condition Avery Terrell MD August 22, 2016 10:23
[2016-08-22 18:27] VITALS: BP 166/84; PULSE 107; RESP 18; TEMP 98.3; O2SAT 100
[2016-08-22] MEDS: REMOVE OLD NICODERM (NICOTINE) PATCH T-DERMAL SCH (21:00)
[2016-08-23 06:17] VITALS: BP 156/91; PULSE 97; RESP 22; TEMP 98.4; O2SAT 95
[2016-08-23] MEDS: NICOTINE 21 MG/24 HR PATCH T-DERMAL SCH (09:00)
[2016-08-23] MEDS: levOCARNitine 10% ORAL SOLN 118 ML BTL PO SCH ×4 (09:00→17:18)
[2016-08-23] MEDS: DIVALPROEX SODIUM DELAYED RELEASE 250 MG TAB PO SCH ×3 (09:00→20:56)
--- NOTE | 2016-08-23 11:37 | HHI.PYPN ---
Subjective Remarks Patient seen in [facility] with nurse Hailee and counselor Gio, patient continues with pressured speech some grandiosity and paranoia. There is a delusional aspect to him also with his grandiosity. Patient showing mixed compliance medication. Though did take his invega sustaina to 34 mg IM on 08/21 for now continue treatment no change Review of Systems Except as stated in HPI: all other systems reviewed are Neg Objective Alert: Yes [place]: Person, Place Mood: Happy Affect: Euthymic Memory Intact: Comment (Not assessed) Hallucinations: Other (no AVH) Delusions: No Delusion Type: Other (no delusional material) Suicidal: Ideation (no suicidal ideation) Homicidal: Ideation (no homicidal ideation) Insight/Judgment Very poor Vitals/IOs Vital Signs Date Time Temp Pulse Resp B/P Pulse Ox O2 Delivery O2 Flow Rate FiO2 08/23/16 06:17 98.4 97 22 156/91 95 Assessment & Plan Problem List: (1) Psychosis ICD Code: F29 Assessment & Plan Estimated LOS: days patient continue psychotic manic with a paranoid flavor, compliant medications. For now continue treatment Justification for Cont. Inpt. At this time patient will decompensate if placed in a lower level of care Discharge Planning To be determined Request HC Surrog/Guard Advoc?: Yes Problem Qualifiers (1) Psychosis: Qualified Code: F28 - Other psychotic disorder not due to substance or known physiological condition Avery Terrell MD August 23, 2016 11:36
[2016-08-23] MEDS: REMOVE OLD NICODERM (NICOTINE) PATCH T-DERMAL SCH (20:58)
[2016-08-24] MEDS: DIVALPROEX SODIUM DELAYED RELEASE 250 MG TAB PO SCH ×2 (09:00→20:52)
[2016-08-24] MEDS: levOCARNitine 10% ORAL SOLN 118 ML BTL PO SCH ×3 (09:00→18:00)
[2016-08-24] MEDS: NICOTINE 21 MG/24 HR PATCH T-DERMAL SCH (09:00)
--- NOTE | 2016-08-24 11:55 | HHI.PYPN ---
Subjective Remarks Patient seen in his room with nurse Sahra, patient covers over his head showing anger paranoia and vigilance towards me denying his need for medication since he had the injection telling me "you are not a doctor" the patient does not show some improvement with the injection the next 1-2 days need to consider the addition of oral medication to be given either by mouth or IM Review of Systems Except as stated in HPI: all other systems reviewed are Neg Objective Alert: Yes [place]: Person, Place Mood: Happy Affect: Euthymic Memory Intact: Comment (Not assessed) Hallucinations: Other (no AVH) Delusions: No Delusion Type: Other (no delusional material) Suicidal: Ideation (no suicidal ideation) Homicidal: Ideation (no homicidal ideation) Insight/Judgment Very poor Vitals/IOs Vital Signs Date Time Temp Pulse Resp B/P Pulse Ox O2 Delivery O2 Flow Rate FiO2 08/23/16 06:17 98.4 97 22 156/91 95 Assessment & Plan Problem List: (1) Psychosis ICD Code: F29 Assessment & Plan Estimated LOS: days patient continues quite psychotic with manic flavor, sore noncompliance with medications, no insight his disease. If he does not show some improvement with the next 1-2 days will consider addition of oral medication either by mouth or IM Justification for Cont. Inpt. At this time patient will decompensate if placed in a lower level of care Discharge Planning To be determined Request HC Surrog/Guard Advoc?: Yes Problem Qualifiers (1) Psychosis: Qualified Code: F28 - Other psychotic disorder not due to substance or known physiological condition Avery Terrell MD August 24, 2016 11:55
[2016-08-24] MEDS: REMOVE OLD NICODERM (NICOTINE) PATCH T-DERMAL SCH (20:52)
[2016-08-25 06:08] VITALS: BP 148/83; PULSE 97; RESP 18; TEMP 97.8; O2SAT 98
[2016-08-25] MEDS: NICOTINE 21 MG/24 HR PATCH T-DERMAL SCH (09:00)
[2016-08-25] MEDS: levOCARNitine 10% ORAL SOLN 118 ML BTL PO SCH ×3 (09:00→18:00)
[2016-08-25] MEDS: DIVALPROEX SODIUM DELAYED RELEASE 250 MG TAB PO SCH ×2 (09:17→20:46)
--- NOTE | 2016-08-25 16:19 | HHI.PYPN ---
Subjective Remarks Patient seen in his room with nurse Brianna, chart reviewed. Patient remains currently psychotic disorganized and manic with rapid pressured speech. Markedly tangential circumstantial. Also appears like he may be responding to internal stimuli. Patient also show noncompliance with medication. We will offer patient Geodon 40 mg by mouth twice a day if refuses offer Geodon 10 mg IM in its place only with permission of health care surrogate/guardian advocate Review of Systems Except as stated in HPI: all other systems reviewed are Neg Objective Alert: Yes [place]: Person, Place Mood: Happy Affect: Euthymic, Manic Memory Intact: Comment (Not assessed) Hallucinations: Other (no AVH) Delusions: No Delusion Type: Other (no delusional material) Suicidal: Ideation (no suicidal ideation) Homicidal: Ideation (no homicidal ideation) Insight/Judgment Very poor Vitals/IOs Vital Signs Date Time Temp Pulse Resp B/P Pulse Ox O2 Delivery O2 Flow Rate FiO2 08/25/16 06:08 97.8 97 18 148/83 98 Assessment & Plan Problem List: (1) Psychosis ICD Code: F29 Assessment & Plan Estimated LOS: days patient continues psychotic but now sharing more hypomanic presentation also with rapid pressured speech and significant disorganization to her speech seemed medication adjustments above Justification for Cont. Inpt. At this time patient will decompensate if placed in a lower level of care Discharge Planning To be determined Request HC Surrog/Guard Advoc?: Yes Problem Qualifiers (1) Psychosis: Qualified Code: F28 - Other psychotic disorder not due to substance or known physiological condition Avery Terrell MD August 25, 2016 16:18
[2016-08-25] MEDS: ZIPRASIDONE HCL 40 MG CAP PO SCH (18:00)
[2016-08-25] MEDS: ZIPRASIDONE MESYLATE 20 MG VIAL IM SCH (18:00)
[2016-08-25] MEDS: REMOVE OLD NICODERM (NICOTINE) PATCH T-DERMAL SCH (20:46)
[2016-08-26] MEDS: DIVALPROEX SODIUM DELAYED RELEASE 250 MG TAB PO SCH ×2 (08:57→21:00)
[2016-08-26] MEDS: NICOTINE 21 MG/24 HR PATCH T-DERMAL SCH (09:00)
[2016-08-26] MEDS: ZIPRASIDONE HCL 40 MG CAP PO SCH ×2 (09:00→17:58)
[2016-08-26] MEDS: ZIPRASIDONE MESYLATE 20 MG VIAL IM SCH ×2 (09:40→17:58)
[2016-08-26] MEDS: levOCARNitine 10% ORAL SOLN 118 ML BTL PO SCH ×3 (10:05→17:58)
[2016-08-26 15:16] VITALS: BP 127/75; PULSE 110; RESP 18; TEMP 97.5
--- NOTE | 2016-08-26 16:08 | HHI.PYPN ---
Subjective Remarks Patient seen in [facility] nurse came, patient continues with pressured speech markedly disorganized and nonsensical. Patient refused oral Geodon was given IM Geodon and its place. For now continue treatment Review of Systems Except as stated in HPI: all other systems reviewed are Neg Objective Alert: Yes [place]: Person, Place Mood: Happy Affect: Euthymic, Manic Memory Intact: Comment (Not assessed) Hallucinations: Other (no AVH) Delusions: No Delusion Type: Other (no delusional material) Suicidal: Ideation (no suicidal ideation) Homicidal: Ideation (no homicidal ideation) Insight/Judgment Very poor Vitals/IOs Vital Signs Date Time Temp Pulse Resp B/P Pulse Ox O2 Delivery O2 Flow Rate FiO2 08/26/16 15:16 97.5 110 18 127/75 08/25/16 06:08 98 Assessment & Plan Problem List: (1) Psychosis ICD Code: F29 Assessment & Plan Estimated LOS: days patient continues psychotic with manic flavor. She should not compliance with medication Justification for Cont. Inpt. At this time patient will decompensate to placed a lower level of care Discharge Planning To be determined Request HC Surrog/Guard Advoc?: Yes Problem Qualifiers (1) Psychosis: Qualified Code: F28 - Other psychotic disorder not due to substance or known physiological condition Avery Terrell MD August 26, 2016 16:08
[2016-08-26] MEDS: REMOVE OLD NICODERM (NICOTINE) PATCH T-DERMAL SCH (21:00)
[2016-08-27 06:27] VITALS: BP 175/98; PULSE 100; RESP 18; TEMP 98.8; O2SAT 98
[2016-08-27 06:39] VITALS: BP 150/90
[2016-08-27] MEDS: ZIPRASIDONE HCL 40 MG CAP PO SCH ×3 (08:10→17:37)
[2016-08-27] MEDS: levOCARNitine 10% ORAL SOLN 118 ML BTL PO SCH ×5 (08:11→17:38)
[2016-08-27] MEDS: DIVALPROEX SODIUM DELAYED RELEASE 250 MG TAB PO SCH ×3 (08:11→20:11)
[2016-08-27] MEDS: NICOTINE 21 MG/24 HR PATCH T-DERMAL SCH ×2 (08:12→08:37)
[2016-08-27] MEDS: ZIPRASIDONE MESYLATE 20 MG VIAL IM SCH ×2 (08:26→18:00)
[2016-08-27] MEDS: LORazepam 2 MG/ML VIAL IM PRN (08:36)
[2016-08-27 10:28] VITALS: BP 146/86; PULSE 86
--- NOTE | 2016-08-27 15:28 | HHI.PYPN ---
Subjective Remarks Patient seen in his room with nurse Juliana, in bed covers over his head. Patient facing away from me, refuses speak with me and growling grunting voice. Patient showing mixed compliance with medication needing occasional IM Geodon for now continue treatment Review of Systems Except as stated in HPI: all other systems reviewed are Neg Objective Alert: Yes [place]: Person, Place Mood: Happy Affect: Euthymic, Manic Memory Intact: Comment (Not assessed) Hallucinations: Other (no AVH) Delusions: No Delusion Type: Other (no delusional material) Suicidal: Ideation (no suicidal ideation) Homicidal: Ideation (no homicidal ideation) Insight/Judgment Very poor Vitals/IOs Vital Signs Date Time Temp Pulse Resp B/P Pulse Ox O2 Delivery O2 Flow Rate FiO2 08/27/16 10:28 86 146/86 08/27/16 06:27 98.8 18 98 Assessment & Plan Problem List: (1) Psychosis ICD Code: F29 Assessment & Plan Estimated LOS: days patient remained psychotic, manic flavor. Mixed compliance with medication for now continue treatment Justification for Cont. Inpt. At this time patient will decompensate the placed in a lower level of care Discharge Planning To be determined Request HC Surrog/Guard Advoc?: Yes Problem Qualifiers (1) Psychosis: Qualified Code: F28 - Other psychotic disorder not due to substance or known physiological condition Avery Terrell MD August 27, 2016 15:27
[2016-08-27] MEDS: REMOVE OLD NICODERM (NICOTINE) PATCH T-DERMAL SCH (20:12)
[2016-08-28 06:14] VITALS: BP 143/90; PULSE 90; RESP 20; TEMP 97.5; O2SAT 95
[2016-08-28] MEDS: DIVALPROEX SODIUM DELAYED RELEASE 250 MG TAB PO SCH ×2 (08:37→20:59)
[2016-08-28] MEDS: ZIPRASIDONE HCL 40 MG CAP PO SCH ×2 (08:37→18:00)
[2016-08-28] MEDS: NICOTINE 21 MG/24 HR PATCH T-DERMAL SCH (08:37)
[2016-08-28] MEDS: levOCARNitine 10% ORAL SOLN 118 ML BTL PO SCH ×3 (08:47→18:00)
[2016-08-28] MEDS: ZIPRASIDONE MESYLATE 20 MG VIAL IM SCH ×2 (08:47→18:00)
--- NOTE | 2016-08-28 14:51 | HHI.PYPN ---
Subjective Remarks Patient was seen and case discussed with nursing. Per nursing he is oppositional and very hesitant with taking medications and needs 20 minutes her redirection to do so. He remains elevated and hyperverbal. Rambling speech, difficult to understand. Alert and oriented 2. His compliant with his medications and behaving on the unit Objective Alert: Yes [place]: Person, Place Mood: Oppositional Affect: Manic Memory Intact: Comment (Not assessed) Hallucinations: Other (no AVH) Delusions: No Delusion Type: Other (internally preoccupied) Suicidal: Ideation (no suicidal ideation) Homicidal: Ideation (no homicidal ideation) Insight/Judgment Poor Vitals/IOs Vital Signs Date Time Temp Pulse Resp B/P Pulse Ox O2 Delivery O2 Flow Rate FiO2 08/28/16 06:14 97.5 90 20 143/90 95 Assessment & Plan Problem List: (1) Psychosis ICD Code: F29 Assessment & Plan Continue current treatment plan Justification for Cont. Inpt. Patient will decompensate in a less restrictive setting Request HC Surrog/Guard Advoc?: Yes Problem Qualifiers (1) Psychosis: Qualified Code: F28 - Other psychotic disorder not due to substance or known physiological condition Luan Gaitan DO August 28, 2016 14:51
[2016-08-28 18:12] VITALS: BP 166/90; PULSE 92; RESP 20; O2SAT 97
[2016-08-28] MEDS: ZOLPIDEM TARTRATE 5 MG TAB PO PRN (20:59)
[2016-08-28] MEDS: REMOVE OLD NICODERM (NICOTINE) PATCH T-DERMAL SCH (21:00)
[2016-08-29 06:27] VITALS: BP 165/80; PULSE 80; RESP 21; TEMP 98; O2SAT 97
[2016-08-29] MEDS: levOCARNitine 10% ORAL SOLN 118 ML BTL PO SCH ×3 (08:53→17:00)
[2016-08-29] MEDS: ZIPRASIDONE HCL 40 MG CAP PO SCH ×2 (08:53→16:59)
[2016-08-29] MEDS: ZIPRASIDONE MESYLATE 20 MG VIAL IM SCH ×2 (08:53→17:57)
[2016-08-29] MEDS: NICOTINE 21 MG/24 HR PATCH T-DERMAL SCH (08:53)
[2016-08-29] MEDS: DIVALPROEX SODIUM DELAYED RELEASE 250 MG TAB PO SCH ×2 (08:53→20:54)
--- NOTE | 2016-08-29 15:29 | HHI.PYPN ---
Subjective Remarks Patient was seen and case discussed with nursing. Blood pressure has been elevated in the last couple days we will start lisinopril and consult medicine. Patient remains hyperverbal, elevated with flight of ideas and rambling speech. Sleeping 4 hours a night. Refusing most of his by mouth medications and getting IM injections Objective Alert: Yes [place]: Person, Place Mood: Anxious Affect: Manic Memory Intact: Comment (Not assessed) Hallucinations: Other (no AVH) Delusions: No Delusion Type: Other (internally preoccupied) Suicidal: Ideation (no suicidal ideation) Homicidal: Ideation (no homicidal ideation) Insight/Judgment Poor Vitals/IOs Vital Signs Date Time Temp Pulse Resp B/P Pulse Ox O2 Delivery O2 Flow Rate FiO2 08/29/16 06:27 98.0 80 21 165/80 97 Assessment & Plan Problem List: (1) Psychosis ICD Code: F29 Assessment & Plan Consider long-acting injectable given noncompliance, lisinopril started, consult medicine Justification for Cont. Inpt. Patient will decompensate in a less restrictive setting Request HC Surrog/Guard Advoc?: Yes Problem Qualifiers (1) Psychosis: Qualified Code: F28 - Other psychotic disorder not due to substance or known physiological condition Luan Gaitan DO August 29, 2016 15:29
[2016-08-29] MEDS: LISINOPRIL 10 MG TAB PO SCH (15:30)
[2016-08-29 15:44] VITALS: BP 144/95; PULSE 100; RESP 18; TEMP 98.6; O2SAT 100
[2016-08-29 20:06] VITALS: BP 144/95; PULSE 100; RESP 18; TEMP 98.6; O2SAT 98
[2016-08-29] MEDS: ZOLPIDEM TARTRATE 5 MG TAB PO PRN (20:54)
[2016-08-29] MEDS: REMOVE OLD NICODERM (NICOTINE) PATCH T-DERMAL SCH (20:55)
[2016-08-30 06:08] VITALS: BP 150/70; PULSE 81; RESP 19; TEMP 97.4; O2SAT 95
[2016-08-30] MEDS: LISINOPRIL 10 MG TAB PO SCH (08:55)
[2016-08-30] MEDS: ZIPRASIDONE HCL 40 MG CAP PO SCH ×2 (08:55→18:46)
[2016-08-30] MEDS: DIVALPROEX SODIUM DELAYED RELEASE 250 MG TAB PO SCH ×2 (08:55→20:18)
[2016-08-30] MEDS: ZIPRASIDONE MESYLATE 20 MG VIAL IM SCH ×2 (09:00→18:46)
[2016-08-30] MEDS: levOCARNitine 10% ORAL SOLN 118 ML BTL PO SCH ×3 (09:07→18:00)
[2016-08-30] MEDS: NICOTINE 21 MG/24 HR PATCH T-DERMAL SCH (09:07)
[2016-08-30] MEDS ORDERED: LISINOPRIL 10 MG TAB PO ONE (15:00)
--- NOTE | 2016-08-30 17:41 | HHI.PYPN ---
Subjective Remarks Patient seen in day room with nurse Rich, chart reviewed, patient continues with rapid pressured markedly disorganized speech also somewhat irritable if we attempt to interrupt him or to stop the conversation. Will increase Geodon to 80 mg twice a day Review of Systems Except as stated in HPI: all other systems reviewed are Neg Objective Alert: Yes [place]: Person, Place Mood: Anxious Affect: Manic Memory Intact: Comment (Not assessed) Hallucinations: Other (no AVH) Delusions: No Delusion Type: Other (internally preoccupied) Suicidal: Ideation (no suicidal ideation) Homicidal: Ideation (no homicidal ideation) Insight/Judgment Very poor Vitals/IOs Vital Signs Date Time Temp Pulse Resp B/P Pulse Ox O2 Delivery O2 Flow Rate FiO2 08/30/16 06:08 97.4 81 19 150/70 95 Assessment & Plan Problem List: (1) Psychosis ICD Code: F29 Assessment & Plan Estimated LOS: days patient continues psychotic delusional with manic flavor. See medication adjustment above Justification for Cont. Inpt. At this time patient will decompensate the placed in a lower level of care Discharge Planning To be determined Request HC Surrog/Guard Advoc?: Yes Problem Qualifiers (1) Psychosis: Qualified Code: F28 - Other psychotic disorder not due to substance or known physiological condition Avery Terrell MD August 30, 2016 17:41
--- NOTE | 2016-08-30 20:16 | HHI.PR ---
Subjective Remarks Deferred entry - patient seen earlier at 14:50 hrs reconsulted for htn patient denies cp/sob Bp in the systolic 160's Objective Vitals Vital Signs Date Time Temp Pulse Resp B/P Pulse Ox O2 Delivery O2 Flow Rate FiO2 08/30/16 06:08 97.4 81 19 150/70 95 Imaging Last Impressions Head CT 08/08/16 0000 Signed Impressions: Service Date/Time: Monday, August 08, 2016 16:45 - CONCLUSION: Unremarkable study. Rogelio Green MD Objective Remarks GENERAL: This is a well-nourished, well-developed patient, in no apparent distress. SKIN: No rashes or ecchymoses. Lipoma noted at base of neck. Cool and dry. HEAD: Atraumatic. Normocephalic. No temporal or scalp tenderness. EYES: Pupils equal round and reactive. Extraocular motions intact. No scleral icterus. No injection or drainage. ENT: Nose without bleeding, purulent drainage or septal hematoma. Throat without erythema. Uvula midline. Airway patent. NECK: Trachea midline. No JVD or lymphadenopathy. Supple, nontender, no meningeal signs. CARDIOVASCULAR: Regular rate and rhythm without murmurs, gallops, or rubs. RESPIRATORY: Clear to auscultation. Breath sounds equal bilaterally. No wheezes , rales, or rhonchi. GASTROINTESTINAL: Abdomen soft, non-tender, nondistended. No hepato-splenomegaly , or palpable masses. No guarding. MUSCULOSKELETAL: Extremities without clubbing, cyanosis, or edema. No joint tenderness, effusion, or edema noted. No calf tenderness. NEUROLOGICAL: Awake and alert. Cranial nerves II through XII intact. Motor and sensory grossly within normal limits. Five out of 5 muscle strength in all muscle groups. Speech noted to be pressured and fluently dysarthric. PSYCHIATRIC: Pressured speech, tangential thoughts Medications and IVs Current Medications Medications (Trade) Dose Ordered Sig/Elvira Route Start Time Stop Time Status Last Admin (Ativan) 1 mg Q6H PRN PO 08/09/16 09:15 08/20/16 10:43 (Ativan Inj) 1 mg Q6H PRN IM 08/09/16 09:15 08/27/16 08:36 (Tylenol) 650 mg Q4H PRN PO 08/09/16 09:15 (Milk Of Magnesia Liq) 30 ml DAILY PRN PO 08/09/16 09:15 (Mag-Al Plus Susp Liq) 30 ml Q6H PRN PO 08/09/16 09:15 (Habitrol 21 Mg Patch.24 Hr) 1 patch DAILY T-DERMAL 08/09/16 09:15 Miscellaneous Information 1 HS T-DERMAL 08/09/16 21:00 08/21/16 21:00 (Cogentin) 1 mg Q12HR PRN PO 08/10/16 12:15 (Cogentin Inj) 1 mg Q12HR PRN IM 08/10/16 12:15 (Ambien) 5 mg HS PRN PO 08/10/16 12:15 08/29/16 20:54 (Depakote Dr) 750 mg BID PO 08/17/16 21:00 08/30/16 08:55 (Pill Splitter) 1 ea UNSCH PRN OTHER 08/19/16 12:45 (Carnitor 10% Liq) 3 ml TID PO 08/21/16 18:00 08/30/16 13:43 (Geodon Inj) 10 mg BIDPC IM 08/25/16 18:00 08/30/16 18:46 (Prinivil) 20 mg DAILY PO 08/31/16 09:00 (Geodon) 80 mg BIDPC PO 08/30/16 18:00 Urinary Catheter: No Vascular Central Line Catheter: No A/P Problem List: (1) Psychosis ICD Code: F29 Status: Acute Plan: Management as per psychiatry. The patient currently is on ziprasidone, Depakote, Cogentin (2) HTN (hypertension) ICD Code: I10 Status: Acute Plan: Patient started on lisinopril 10 mg by mouth daily by primary attending. However, patient still hypertensive. I will increase the dose to 20 mg by mouth daily. I will give 10 mg by mouth once daily and that the systolic blood pressure is in the 160 systolic. Patient elicits a previous history of hypertension, however does not remember the medication he used to take. Continue to monitor vital signs. 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
[2016-08-30] MEDS: REMOVE OLD NICODERM (NICOTINE) PATCH T-DERMAL SCH (20:18)
[2016-08-31 05:18] VITALS: BP 129/81; PULSE 83; RESP 18; TEMP 97.3; O2SAT 99
[2016-08-31] MEDS: ZIPRASIDONE HCL 40 MG CAP PO SCH ×2 (08:44→18:50)
[2016-08-31] MEDS: LISINOPRIL 20 MG TAB PO SCH (08:44)
[2016-08-31] MEDS: LORazepam 1 MG TAB PO PRN (08:45)
[2016-08-31] MEDS: levOCARNitine 10% ORAL SOLN 118 ML BTL PO SCH ×3 (08:45→18:50)
[2016-08-31] MEDS: ZIPRASIDONE MESYLATE 20 MG VIAL IM SCH ×2 (08:45→18:50)
[2016-08-31] MEDS: NICOTINE 21 MG/24 HR PATCH T-DERMAL SCH (08:45)
[2016-08-31] MEDS: DIVALPROEX SODIUM DELAYED RELEASE 250 MG TAB PO SCH ×2 (08:54→20:11)
--- NOTE | 2016-08-31 13:06 | HHI.PYPN ---
Subjective Remarks Patient seen in his room with counselor Gio, patient with his back to me not responding verbally to my questions though grunting somewhat. He did have a when necessary earlier this morning. Staff states he continues markedly disorganized confused labile. Showing mixed compliance medication feeling that medications are poisoning him Review of Systems Except as stated in HPI: all other systems reviewed are Neg Objective Alert: Yes [place]: Person, Place Mood: Anxious Affect: Manic Memory Intact: Comment (Not assessed) Hallucinations: Other (no AVH) Delusions: No Delusion Type: Other (internally preoccupied) Suicidal: Ideation (no suicidal ideation) Homicidal: Ideation (no homicidal ideation) Insight/Judgment Very poor Vitals/IOs Vital Signs Date Time Temp Pulse Resp B/P Pulse Ox O2 Delivery O2 Flow Rate FiO2 08/31/16 05:18 97.3 83 18 129/81 99 Assessment & Plan Problem List: (1) Psychosis ICD Code: F29 Assessment & Plan Estimated LOS: days patient continues psychotic labile irritable with crush for compliance medication for now continue treatment Justification for Cont. Inpt. 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
[2016-08-31] MEDS: REMOVE OLD NICODERM (NICOTINE) PATCH T-DERMAL SCH (20:35)
[2016-09-01 06:18] VITALS: BP 113/77; PULSE 103; RESP 16; TEMP 98; O2SAT 96
[2016-09-01] MEDS: levOCARNitine 10% ORAL SOLN 118 ML BTL PO SCH ×3 (09:00→17:24)
[2016-09-01] MEDS: ZIPRASIDONE MESYLATE 20 MG VIAL IM SCH (09:00)
[2016-09-01] MEDS: NICOTINE 21 MG/24 HR PATCH T-DERMAL SCH (09:00)
[2016-09-01] MEDS: LISINOPRIL 20 MG TAB PO SCH (09:14)
[2016-09-01] MEDS: ZIPRASIDONE HCL 40 MG CAP PO SCH (09:14)
[2016-09-01] MEDS: DIVALPROEX SODIUM DELAYED RELEASE 250 MG TAB PO SCH ×2 (09:14→20:45)
--- NOTE | 2016-09-01 10:57 | HHI.PYPN ---
Subjective Remarks Patient seen and examined with counselor and nurse. Chart reviewed. Case discussed with nurse who reports that the patient has been in good spirits today. He was reportedly incontinent of urine 1 overnight. Counselor reports that the patient has been somewhat more agitated/irritable over the last several days. Prior to my evaluation today, patient had a yelling outburst. When I ask him why he was yelling out, he accuses someone of ruining his pillow (although it does not appear damaged to me). Thought process perhaps a little more organized versus my last contact with him. He is less rambling and more coherent in his speech. When I inquire about his episode of incontinence, for example, he is able to tell me that he theorizes that this occurred because "my thing is so big" that he was unable to get the entirety of his member out of his pants in time. He denies dysuria or other urinary symptoms. Denies side effects from medications. No physical complaints. Review of Systems ROS Limitations: Poor Historian Except as stated in HPI: all other systems reviewed are Neg Objective Alert: Yes [place]: Person, Place Mood: Happy Affect: Labile Memory Intact: Comment (Not formally assessed) Hallucinations: Other (No AVH) Delusions: No Delusion Type: Other (No onel delusions) Suicidal: Ideation (No SI) Homicidal: Ideation (No HI) Insight/Judgment Poor Remarks TP marginally more more organized. Speech more coherent. Patient a little fidgety but no other motor abnormalities noted. Labs Labs reviewed. No new labs. Vitals/IOs Vital Signs Date Time Temp Pulse Resp B/P Pulse Ox O2 Delivery O2 Flow Rate FiO2 09/01/16 06:18 98.0 103 16 113/77 96 Assessment & Plan Problem List: (1) Psychosis ICD Code: F29 Assessment & Plan Patient's thought process does seem marginally more organized on Geodon, but worsened irritability reported by counselor and evident in his yelling outburst today would seem to suggest interval worsening, or at the very least inadequate response to current therapy. Patient received initial dose of Sustenna but not the subsequent ~1 week booster dose, and so it is not clear that this agent was given an adequate trial. I will stop the Geodon and administer the 156mg IM dose of Invega Sustenna as recommended by customer support advisor for missed second dose in this time-frame. Continue Depakote as ordered. Recheck an ammonia level in the morning. To consider a different mood stabilizer. Check a UA in light of episode of incontinence of urine. Continue to monitor on inpatient unit. Continue other medications and care as ordered. Justification for Cont. Inpt. Impairment in social function. Medication changes in process. High risk for decompensation in a less restrictive environment. Discharge Planning Counselor continues to try to reach niece, with whom patient was residing prior to admission, to coordinate discharge planning. [facility] placement or state psychiatric hospitalization represent alternative discharge plans, but I would like to get a definitive word regarding niece's willingness to have the patient back prior to proceeding with either of these two options. 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
[2016-09-01] MEDS ORDERED: PALIPERIDONE PALMITATE 156 MG/ML SYRINGE IM ONE (14:30)
[2016-09-01] MEDS: REMOVE OLD NICODERM (NICOTINE) PATCH T-DERMAL SCH (20:46)
[2016-09-02 05:27] VITALS: BP 130/76; PULSE 85; RESP 18; TEMP 97.9; O2SAT 95
[2016-09-02] MEDS: NICOTINE 21 MG/24 HR PATCH T-DERMAL SCH (09:00)
[2016-09-02] MEDS: levOCARNitine 10% ORAL SOLN 118 ML BTL PO SCH ×3 (09:00→17:17)
[2016-09-02] MEDS: LISINOPRIL 20 MG TAB PO SCH (09:20)
[2016-09-02] MEDS: DIVALPROEX SODIUM DELAYED RELEASE 250 MG TAB PO SCH ×2 (09:20→20:33)
--- NOTE | 2016-09-02 09:36 | HHI.PR ---
Subjective Remarks deferred entry - patient seen 09/01 Denies cp/sob denies headache bp stable Objective Vitals Vital Signs Date Time Temp Pulse Resp B/P Pulse Ox O2 Delivery O2 Flow Rate FiO2 09/02/16 05:27 97.9 85 18 130/76 95 Objective Remarks GENERAL: This is a well-nourished, well-developed patient, in no apparent distress. SKIN: No rashes or ecchymoses. Lipoma noted at base of neck. Cool and dry. HEAD: Atraumatic. Normocephalic. No temporal or scalp tenderness. EYES: Pupils equal round and reactive. Extraocular motions intact. No scleral icterus. No injection or drainage. ENT: Nose without bleeding, purulent drainage or septal hematoma. Throat without erythema. Uvula midline. Airway patent. NECK: Trachea midline. No JVD or lymphadenopathy. Supple, nontender, no meningeal signs. CARDIOVASCULAR: Regular rate and rhythm without murmurs, gallops, or rubs. RESPIRATORY: Clear to auscultation. Breath sounds equal bilaterally. No wheezes , rales, or rhonchi. GASTROINTESTINAL: Abdomen soft, non-tender, nondistended. No hepato-splenomegaly , or palpable masses. No guarding. MUSCULOSKELETAL: Extremities without clubbing, cyanosis, or edema. No joint tenderness, effusion, or edema noted. No calf tenderness. NEUROLOGICAL: Awake and alert. Cranial nerves II through XII intact. Motor and sensory grossly within normal limits. Five out of 5 muscle strength in all muscle groups. Speech noted to be pressured and fluently dysarthric. PSYCHIATRIC: Pressured speech, tangential thoughts A/P Problem List: (1) Psychosis ICD Code: F29 Status: Acute Plan: Management as per psychiatry. The patient currently is on ziprasidone, Depakote, Cogentin (2) HTN (hypertension) ICD Code: I10 Status: Acute Plan: Patient started on lisinopril 10 mg by mouth daily by primary attending. Lisinopril increased to 20 mg po daily. Bp better. continue lisinopril 20 mg daily. Discharge Planning I will sign off please reconsult if needed. 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
--- NOTE | 2016-09-02 13:19 | HHI.PYPN ---
Subjective Remarks Patient seen and examined with counselor and nurse. Chart reviewed. Case discussed with nursing staff reports that the patient showered and changed clothes but also reported that he can "see into the future." The patient also refused ammonia level and refused to provide urine for urinalysis yesterday. When I asked the patient about this refusal he says "I did not [give a sample] because it was not entirely necessary." Education provided regarding purpose of these labs, but patient continues to refuse. Some brief periods of clearer thought and speech, although overall he remains fairly scattered and disorganized. He says, "I wanna help that girl to get her an and a sample of her cervix." We reinforce the inappropriateness of this line of thought, but it is not clear in context if he understands what he has said or if this rather represents random snippets of thought as part of an overall disorganized thought process. He then rambles about "poison from a porkchop." Denies side effects from meds. Review of Systems ROS Limitations: Psychotic, Poor Historian Except as stated in HPI: all other systems reviewed are Neg Objective Alert: Yes [place]: Person, Place Mood: Happy Affect: Labile (and somewhat childlike) Memory Intact: Comment (Not formally assessed) Hallucinations: Other (No AVH) Delusions: No Delusion Type: Other (No delusions) Suicidal: Ideation (No SI) Homicidal: Ideation (No HI) Insight/Judgment Poor Remarks Remains a little fidgety but no other motor abnormalities noted. Thought process overall remains fairly disorganized. Speech rambling. Labs Labs reviewed. Patient refused laboratories as noted above. Vitals/IOs Vital Signs Date Time Temp Pulse Resp B/P Pulse Ox O2 Delivery O2 Flow Rate FiO2 09/02/16 05:27 97.9 85 18 130/76 95 Assessment & Plan Problem List: (1) Psychosis ICD Code: F29 Assessment & Plan Patient received a booster dose of Invega Sustenna yesterday without incident. Continue Depakote as ordered. Barring some clinical response in the next few days, may consider switching to a different mood stabilizer. Continue to monitor on the high acuity unit. Continue other medications and care as ordered. Justification for Cont. Inpt. Impairment in reality construction. High risk for decompensation in a less restrictive environment. Discharge Planning Case discussed with counselor. He has been unable to reach the patient's niece. Some concern at this point that she may be avoiding contact in order to avoid resuming care of patient. I have instructed the counselor to begin exploring [facility] placement, and I will also initiate a state hospital referral. Request HC Surrog/Guard Advoc?: Yes Problem Qualifiers (1) Psychosis: Qualified Code: F28 - Other psychotic disorder not due to substance or known physiological condition Dominick Moreno MD September 02, 2016 13:19
[2016-09-02] MEDS: LORazepam 1 MG TAB PO PRN (20:33)
[2016-09-02] MEDS: REMOVE OLD NICODERM (NICOTINE) PATCH T-DERMAL SCH (21:00)
[2016-09-03 06:05] VITALS: BP 90/62; PULSE 90; RESP 20; TEMP 97.4; O2SAT 100
[2016-09-03] MEDS: NICOTINE 21 MG/24 HR PATCH T-DERMAL SCH (09:04)
[2016-09-03] MEDS: LISINOPRIL 20 MG TAB PO SCH (09:04)
[2016-09-03] MEDS: levOCARNitine 10% ORAL SOLN 118 ML BTL PO SCH ×2 (09:04→13:50)
[2016-09-03] MEDS: DIVALPROEX SODIUM DELAYED RELEASE 250 MG TAB PO SCH (09:04)
--- NOTE | 2016-09-03 12:09 | HHI.PYPN ---
Subjective Remarks Patient seen and examined. Chart reviewed. Case discussed with nursing staff, who reports that the patient grew upset at labs draw yesterday and threw his urinal at staff. On my examination today, patient remains somewhat fidgety, disinhibited, distractible. Thought process remains disorganized, although once again this is perhaps modestly improved versus admission. We are able to have a brief but coherent conversation regarding discharge planning, and the patient is presently agreeable to [facility] placement once stable given our difficulties in contacting his niece with whom he had previously lived. No reported side effects from medications, although he remains somewhat resistant to the idea of accepting medications in general. No physical complaints. Review of Systems ROS Limitations: Poor Historian Except as stated in HPI: all other systems reviewed are Neg Objective Alert: Yes [place]: Person, Place Mood: Anxious Affect: Labile (mild) Memory Intact: Comment (Not formally assessed) Hallucinations: Other (No AVH) Delusions: No Delusion Type: Other (No delusions) Suicidal: Ideation (No SI) Homicidal: Ideation (No HI) Insight/Judgment Poor Remarks No motoric abnormalities. TP remains at least moderately disorganized. Speech rambling, although there are brief periods of coherence now and then. Grooming and hygiene fair to poor at best. Labs Test 09/02/16 15:57 Ammonia 51 MCMOL/L Labs reviewed. Hyperammonemia persists but is mildly improved. Vitals/IOs Vital Signs Date Time Temp Pulse Resp B/P Pulse Ox O2 Delivery O2 Flow Rate FiO2 09/03/16 06:05 97.4 90 20 90/62 100 Assessment & Plan Problem List: (1) Psychosis ICD Code: F29 Assessment & Plan Discontinue Depakote/Carnitor and replace with carbamazepine 200mg BID to try to lessen impulsivity and associated acting out. Plan to check a level toward the beginning of next week. Invega Sustenna booster dose was administered . I have placed BP hold parameters on patient's lisinopril. Fall prec. Continue to monitor on high acuity unit. Continue other medications and care as ordered. Justification for Cont. Inpt. Med changes in process. High risk for decompensation in a less restrictive environment. Discharge Planning [facility] placement versus State Hospitalization. Request HC Surrog/Guard Advoc?: Yes Problem Qualifiers (1) Psychosis: Qualified Code: F28 - Other psychotic disorder not due to substance or known physiological condition Dominick Moreno MD September 03, 2016 12:09
[2016-09-03] MEDS: REMOVE OLD NICODERM (NICOTINE) PATCH T-DERMAL SCH (21:00)
[2016-09-03] MEDS: carBAMazepine 200 MG TAB PO SCH (21:01)
[2016-09-04 06:15] VITALS: BP 121/64; PULSE 104; RESP 21; TEMP 98.1; O2SAT 98
[2016-09-04] MEDS: LISINOPRIL 20 MG TAB PO SCH (08:31)
[2016-09-04] MEDS: NICOTINE 21 MG/24 HR PATCH T-DERMAL SCH (08:32)
[2016-09-04] MEDS: carBAMazepine 200 MG TAB PO SCH ×2 (08:32→21:26)
--- NOTE | 2016-09-04 13:17 | HHI.PYPN ---
Subjective Remarks Pt seen and discussed with staff. Pt remains disorganized and with pressured speech (which staff report is an improvement compared with yesterday). He has been more agreeable to redirection when needed, but still requires prompting and assistance with self-care. No SI/HI. He gets agitated briefly during interview and accuses MD of plotting to make his belly hurt. Objective Alert: Yes [place]: Person, Place Mood: Agitated (mild) Affect: Labile (mild) Memory Intact: Comment (Not formally assessed) Hallucinations: Other (No AVH) Delusions: No Delusion Type: Other (No delusions) Suicidal: Ideation (No SI) Homicidal: Ideation (No HI) Insight/Judgment poor Remarks disorganized thought process pressured, rambling speech Vitals/IOs Vital Signs Date Time Temp Pulse Resp B/P Pulse Ox O2 Delivery O2 Flow Rate FiO2 09/04/16 06:15 98.1 104 21 121/64 98 Assessment & Plan Problem List: (1) Psychosis ICD Code: F29 Assessment & Plan Continue current tx plan. Estimated LOS: days Justification for Cont. Inpt. impairments in self care and reality construction Request HC Surrog/Guard Advoc?: Yes Problem Qualifiers (1) Psychosis: Qualified Code: F28 - Other psychotic disorder not due to substance or known physiological condition Peggy Schumacher MD September 04, 2016 13:17
[2016-09-04] MEDS: REMOVE OLD NICODERM (NICOTINE) PATCH T-DERMAL SCH (21:00)
[2016-09-05 06:43] VITALS: BP 131/71; PULSE 79; RESP 19; TEMP 97.4; O2SAT 99
[2016-09-05] MEDS: carBAMazepine 200 MG TAB PO SCH ×2 (08:12→20:48)
[2016-09-05] MEDS: NICOTINE 21 MG/24 HR PATCH T-DERMAL SCH (08:12)
[2016-09-05] MEDS: LISINOPRIL 20 MG TAB PO SCH (08:12)
--- NOTE | 2016-09-05 12:13 | HHI.PYPN ---
Subjective Remarks Pt seen and discussed with staff. Pt remains disorganized and labile. He is compliant with medication and denies side effects. He is intrusive and approaches MD several times to say "spaghetti and meatballs". No SI/HI. Objective Alert: Yes [place]: Person, Place Mood: Other (elevated) Affect: Labile Memory Intact: Comment (Not formally assessed) Hallucinations: Other (No AVH) Delusions: No Delusion Type: Other (No delusions) Suicidal: Ideation (No SI) Homicidal: Ideation (No HI) Insight/Judgment poor Vitals/IOs Vital Signs Date Time Temp Pulse Resp B/P Pulse Ox O2 Delivery O2 Flow Rate FiO2 09/05/16 06:43 97.4 79 19 131/71 99 Assessment & Plan Problem List: (1) Psychosis ICD Code: F29 Assessment & Plan Continue current tx plan. Estimated LOS: days Justification for Cont. Inpt. impairments in reality construction. Request HC Surrog/Guard Advoc?: Yes Problem Qualifiers (1) Psychosis: Qualified Code: F28 - Other psychotic disorder not due to substance or known physiological condition Peggy Schumacher MD September 05, 2016 12:12
[2016-09-05 18:21] VITALS: BP 113/69; PULSE 71; RESP 18; TEMP 98.2; O2SAT 97
[2016-09-05] MEDS: REMOVE OLD NICODERM (NICOTINE) PATCH T-DERMAL SCH (20:49)
[2016-09-06 05:52] VITALS: BP 121/72; PULSE 71; RESP 18; TEMP 98; O2SAT 96
[2016-09-06] MEDS: NICOTINE 21 MG/24 HR PATCH T-DERMAL SCH (09:00)
[2016-09-06] MEDS: LISINOPRIL 20 MG TAB PO SCH (09:52)
[2016-09-06] MEDS: carBAMazepine 200 MG TAB PO SCH ×2 (09:52→21:08)
--- NOTE | 2016-09-06 10:07 | HHI.PYPN ---
Subjective Remarks Patient seen and examined with counselor and nurse. Chart reviewed. Case discussed with nursing staff reports the patient continues to display garbled, pressured speech. On my examination today, the patient remains fairly disorganized. He does, as before, have brief interludes of rational thought. For example, he complains that this morning "they woke me up at 4 AM. They want in my blood pressure for no reason at all. They just wanted to disturb me. " He then goes on to ramble about water in a nonsensical fashion. Remains somewhat internally stimulated. No physical complaints. No evident side effects from medications. Review of Systems ROS Limitations: Psychotic, Poor Historian Except as stated in HPI: all other systems reviewed are Neg Objective Alert: Yes [place]: Person, Place Mood: Anxious Affect: Labile Memory Intact: Comment (Not formally assessed) Hallucinations: Other (again no AVH) Delusions: No Delusion Type: Other (no onel delusions) Suicidal: Ideation (no SI voiced) Homicidal: Ideation (no HI voiced) Insight/Judgment Poor Remarks A little fidgety but otherwise no motor abnormalities noted. Speech remains rambling a little bit pressured. Grooming and hygiene poor. Labs Labs reviewed. No new labs. Vitals/IOs Vital Signs Date Time Temp Pulse Resp B/P Pulse Ox O2 Delivery O2 Flow Rate FiO2 09/06/16 05:52 98.0 71 18 121/72 96 Assessment & Plan Problem List: (1) Psychosis ICD Code: F29 Assessment & Plan Continue carbamazepine as ordered. Carbamazepine level ordered for tomorrow. Plan to adjust the dose if patient's level will tolerate an upper dose adjustment. Patient also has Dandy Cancino on board. He may require additional antipsychotic action, possibly augmentation with a typical. Continue to monitor on the inpatient unit. Continue other medications and care as ordered. Justification for Cont. Inpt. Impairment in reality construction. Impairment in self-care. High risk for decompensation in a less restrictive environment. Discharge Planning [facility] psychiatric hospital referral versus assisted living placement. 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
[2016-09-06] MEDS: REMOVE OLD NICODERM (NICOTINE) PATCH T-DERMAL SCH (21:00)
[2016-09-07] MEDS: LISINOPRIL 20 MG TAB PO SCH (08:46)
[2016-09-07] MEDS: carBAMazepine 200 MG TAB PO SCH ×2 (08:46→20:49)
[2016-09-07] MEDS: NICOTINE 21 MG/24 HR PATCH T-DERMAL SCH (08:46)
--- NOTE | 2016-09-07 12:14 | HHI.PYPN ---
Subjective Remarks Patient seen and examined with counselor. Chart reviewed. Case discussed with treatment team. Per nursing staff the patient is perhaps very slightly less disorganized. Occupational therapist notes that the patient struggles and groups because of his disorganized thought process. On my examination today, the patient remains fairly disorganized. Speech is fairly rambling. It is difficult to make much sense of what he is saying today. No physical complaints. No reported side effects from medications. Review of Systems ROS Limitations: Poor Historian Except as stated in HPI: all other systems reviewed are Neg Objective Alert: Yes [place]: Person, Place Mood: Calm Affect: Blunted Memory Intact: Comment (Not formally assessed) Hallucinations: Other (no AVH) Delusions: No Delusion Type: Other (no onel delusions) Suicidal: Ideation (no SI) Homicidal: Ideation (no HI) Insight/Judgment Poor Remarks No motor abnormalities noted. Thought process disorganized. Speech rambling. Labs Labs reviewed. Ammonia level and carbamazepine level are both listed as in process Vitals/IOs Vital Signs Date Time Temp Pulse Resp B/P Pulse Ox O2 Delivery O2 Flow Rate FiO2 09/06/16 05:52 98.0 71 18 121/72 96 Assessment & Plan Problem List: (1) Psychosis ICD Code: F29 Assessment & Plan Ongoing significant thought disorganization despite Sustenna + CBZ for mood stabilization. I will add low-dose Haldol as a test dose; if well tolerated, will try to titrate to effect. Continue carbamazepine and await level. Continue to monitor on the high acuity unit. Continue other medications and care as ordered. Justification for Cont. Inpt. Impairment in self-care. Impairment in reality construction. Medication changes in process. High risk for decompensation in a less restrictive environment. Discharge Planning [facility] psychiatric hospital referral. Assisted living placement represents an alternative although his current degree of thought disorganization is perhaps a barrier to this. Request HC Surrog/Guard Advoc?: Yes Problem Qualifiers (1) Psychosis: Qualified Code: F28 - Other psychotic disorder not due to substance or known physiological condition Dominick Moreno MD September 07, 2016 12:14
--- NOTE | 2016-09-07 15:26 | PD.TTN ---
Present for Treatment Team Treatment Team Staff: Provider (Dr. Moreno), Nurse (Brianna Trevino RN), Psych Therapist (Gio JOHNS), Occupational Therapist (Manuel Spencer OT) Patient Problems 1. Discharge planning 2. Medication compliance 3. Knowledge deficit 4. Lack of coping skills Progress Toward Goals Provider Input: Pt medication regiment will continue to be adjusted to achieve further stabilization. Nurse Input: Pt continues to appear manic, hyperverbal, disorganized, compliant with medication regiment, cooperative with unit expectations and with no behavioral outbursts. Psych Therapist Input: Pt remains largely disorganized, manic, hyperverbal and with poor insight into condition. Pt struggles to implement coping skills to manage symptoms resulting in pt requiring redirection, struggling to remain on topic and becoming easily agitated. He has been referred to [facility] and will remain on unit for further stabilization while awaiting placement there. Occupational Therapist Input: Pt is attending groups but appears disruptive and is difficulty to redirect. Documentation Scribe: ANDREAS Fuentes Date Resolved: September 07, 2016 Gio Bunch September 07, 2016 15:26
[2016-09-07 18:30] VITALS: BP 132/71; PULSE 100; RESP 19; TEMP 97.6; O2SAT 97
[2016-09-07] MEDS: REMOVE OLD NICODERM (NICOTINE) PATCH T-DERMAL SCH (20:49)
[2016-09-07] MEDS: HALOPERIDOL 2 MG TAB PO SCH (20:49)
[2016-09-08 06:08] VITALS: BP 148/80; PULSE 66; RESP 17; TEMP 97.9; O2SAT 99
[2016-09-08] MEDS: HALOPERIDOL 2 MG TAB PO SCH ×2 (08:54→08:57)
[2016-09-08] MEDS: carBAMazepine 200 MG TAB PO SCH ×3 (08:54→20:49)
[2016-09-08] MEDS: LISINOPRIL 20 MG TAB PO SCH ×2 (08:54→08:58)
[2016-09-08] MEDS: NICOTINE 21 MG/24 HR PATCH T-DERMAL SCH (08:55)
--- NOTE | 2016-09-08 12:17 | HHI.PYPN ---
Subjective Remarks Patient seen and examined with counselor and nurse. Chart reviewed. Case discussed with nursing staff reports that the patient was agitated and refused his medications this morning throwing a cup of water process. On my examination today, the patient seems distinctly more fidgety. He remains disorganized. He rambles "my niece took it right out of my hands." Affect childlike. He says that he threw the water because "that water is bad. There was gas in it from [place]." Some degree of racial preoccupation. No evident side effects from medications. No physical complaints. Review of Systems ROS Limitations: Psychotic, Poor Historian Except as stated in HPI: all other systems reviewed are Neg Objective Alert: Yes [place]: Person, Place Mood: Anxious Affect: Blunted Memory Intact: Comment (Not formally assessed) Hallucinations: Other (Somewhat int stim) Delusions: Yes Delusion Type: Paranoid Suicidal: Ideation (no SI) Homicidal: Ideation (no HI) Insight/Judgment Poor Remarks Fidgety and restless but no tremor, dystonia, dyskinesia noted. TP disorganized. Speech rambling. Grooming/hygiene poor. Labs Labs reviewed. Patient refused labs. Vitals/IOs Vital Signs Date Time Temp Pulse Resp B/P Pulse Ox O2 Delivery O2 Flow Rate FiO2 09/08/16 06:08 97.9 66 17 148/80 99 Assessment & Plan Problem List: (1) Psychosis ICD Code: F29 Assessment & Plan Much more fidgety today following addition of Haldol. Concern for antipsychotic -induced akathisia. Discontinue Haldol and start with Inderal 10mg TID with BP/ HR parameters. Continue to monitor on the inpatient unit. Continue other medications and care as ordered. Justification for Cont. Inpt. Impairment in reality construction. Impairment in self-care. High risk for decompensation in a less restrictive environment. Discharge Planning Assisted living placement still a possibility but much more likely a state psychiatric hospitalization. 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
[2016-09-08] MEDS: PROPRANOLOL HCL 10 MG TAB PO SCH ×2 (14:00→20:47)
[2016-09-08] MEDS: REMOVE OLD NICODERM (NICOTINE) PATCH T-DERMAL SCH (20:47)
[2016-09-09 05:45] VITALS: BP 178/104; PULSE 90; RESP 17; TEMP 98.2; O2SAT 98
[2016-09-09] MEDS: PROPRANOLOL HCL 10 MG TAB PO SCH ×5 (06:00→21:00)
[2016-09-09] MEDS: carBAMazepine 200 MG TAB PO SCH ×3 (08:38→21:00)
[2016-09-09] MEDS: LISINOPRIL 20 MG TAB PO SCH ×2 (08:38→08:49)
[2016-09-09] MEDS: NICOTINE 21 MG/24 HR PATCH T-DERMAL SCH (08:39)
[2016-09-09] MEDS: LORazepam 2 MG/ML VIAL IM PRN (08:55)
--- NOTE | 2016-09-09 13:20 | HHI.PYPN ---
Subjective Remarks Patient seen and examined with nurse, Alba. Chart reviewed. Case discussed with nursing staff who reports that the patient has been refusing his carbamazepine and antihypertensives. I note that the patient has refused at least 3 doses of carbamazepine. Nursing staff also notes that the patient has been quite agitated and even tried to enucleate himself at one point. On my examination today, patient is huddled in bed under the covers. He remains quite disorganized. Affect is more frankly dysphoric, and patient describes mood as "angry." He tells me, "I wanna because they wanna kill me." Patient cannot tell me who "they" are. No evident side effects from medications. No physical complaints. Review of Systems ROS Limitations: Uncooperative, Psychotic, Poor Historian Other ROS limited. Objective Alert: Yes [place]: Person Mood: Angry, Oppositional Affect: Restricted (dysphoric) Memory Intact: Comment (Not formally assessed) Hallucinations: Other (Remains internally preoccupied) Delusions: Yes Delusion Type: Paranoid Suicidal: Ideation (+SI no plan) Homicidal: Ideation (no HI) Insight/Judgment Poor Remarks No abnormal motor movements noted. No asterixis noted. Speech rambling. Grooming and hygiene poor. Nails are noted to be fairly long. Labs Test 09/09/16 07:27 Ammonia 160 MCMOL/L Carbamazepine (Tegretol) Level 4.0 MCG/ML Labs reviewed. Hyperammonemia noted. Vitals/IOs Vital Signs Date Time Temp Pulse Resp B/P Pulse Ox O2 Delivery O2 Flow Rate FiO2 09/09/16 05:45 98.2 90 17 178/104 98 Elevated blood pressure in the setting of antihypertensive nonadherence noted. Assessment & Plan Problem List: (1) Psychosis ICD Code: F29 Assessment & Plan Patient with interval severe worsening in his psychosis and associated agitation. He reportedly tried to enucleate himself and is endorsing ongoing SI to me. Initiate 1:1 precautions. Clip nails. Patient is refusing CBZ. I will order Haldol 10mg BID PRN severe agitation. We may need to order a scheduled antipsychotic to augment his Sustenna. Consult to the hospitalist for worsened hyperammonemia and HTN. I will order Catapres patch while patient is refusing PO antihypertensives. Continue to monitor on the high acuity unit. Continue other medications and care as ordered. Justification for Cont. Inpt. Impairment in safety. Impairment in self-care. Medication changes in process. High risk for decompensation in a less restrictive setting. Discharge Planning [facility] psychiatric [facility] referral seems more likely at this point but assisted living placement is an alternative. Request HC Surrog/Guard Advoc?: Yes Problem Qualifiers (1) Psychosis: Qualified Code: F28 - Other psychotic disorder not due to substance or known physiological condition Dominick Moreno MD Sep 09, 2016 13:20
[2016-09-09] MEDS ORDERED: cloNIDine HCL 0.1 MG TAB PO PRN (14:00)
[2016-09-09 14:07] LABS: INDIRECT BILIRUBIN 0.3 MG/DL (0.0-0.8); TOTAL BILIRUBIN ADULT 0.4 MG/DL (0.2-1.0)
[2016-09-09] MEDS ORDERED: cloNIDine HCL 0.1 MG/24 HR PATCH T-DERMAL SCH (15:00)
[2016-09-09 15:35] VITALS: BP 130/83; PULSE 80; RESP 16; TEMP 96.9; O2SAT 98
[2016-09-09] MEDS: HALOPERIDOL LACTATE 5 MG/ML AMP IM PRN (18:57)
[2016-09-09 21:00] VITALS: BP 133/77; PULSE 82; RESP 18; O2SAT 96
[2016-09-09] MEDS: REMOVE OLD NICODERM (NICOTINE) PATCH T-DERMAL SCH (21:00)
[2016-09-10 06:00] VITALS: BP 145/98; PULSE 74; RESP 18; TEMP 97.3; O2SAT 99
[2016-09-10] MEDS: PROPRANOLOL HCL 10 MG TAB PO SCH ×3 (06:00→21:20)
[2016-09-10] MEDS: LISINOPRIL 20 MG TAB PO SCH (09:00)
[2016-09-10] MEDS: NICOTINE 21 MG/24 HR PATCH T-DERMAL SCH (09:00)
[2016-09-10] MEDS: carBAMazepine 200 MG TAB PO SCH ×2 (09:00→20:14)
--- NOTE | 2016-09-10 09:46 | HHI.PYPN ---
Subjective Remarks Patient seen and examined with counselor. Chart reviewed. Patient continues to refuse carbamazepine; he is accepting the Inderal which was added for management of akathisia. Case discussed with nursing staff reports the patient was incontinent of stool this morning and was quite agitated. He removed the Catapres patch after it was applied. He is on a one-to-one for safety after trying to enucleate himself yesterday. His nails have been clipped. The behavioral health quality lab technician sitting with him says that he tried to smack himself in the head. On my examination today, the patient remains disorganized. When I inquire why he was trying to hit himself, he alludes to auditory hallucinations saying "you need a manicure." Speech is quite rambling and difficult to understand. No evidence side effects from medications. He did receive a dose of the Haldol IM but does not seem particularly troubled with akathisia symptoms today. Review of Systems ROS Limitations: Psychotic, Poor Historian Except as stated in HPI: all other systems reviewed are Neg Objective Alert: Yes [place]: Person Mood: Anxious Affect: Blunted Memory Intact: Comment (Not formally assessed) Hallucinations: Auditory (as noted above.) Delusions: Yes Delusion Type: Paranoid Suicidal: Ideation (no SI today) Homicidal: Ideation (no HI) Insight/Judgment Poor Remarks No abnormal motor movements noted. Thought process quite disorganized. Speech rambling and largely difficult to understand. Grooming and hygiene poor. Labs Labs reviewed. No new labs. Vitals/IOs Vital Signs Date Time Temp Pulse Resp B/P Pulse Ox O2 Delivery O2 Flow Rate FiO2 09/10/16 06:00 97.3 74 18 145/98 99 Assessment & Plan Problem List: (1) Psychosis ICD Code: F29 Assessment & Plan Continue Haldol 10 mg twice daily IM as needed for agitation. Could consider titrating this to 3 times a day as needed or adding a scheduled dose. Patient received Invega Sustenna injection just over a week ago and so is not due for additional Invega Sustenna at this time. He is presently refusing his mood stabilizer. Awaiting hospitalist input for hyperammonemia. Continue one-to- one for safety. Continue to monitor on the high acuity unit. Continue other medications and care as ordered. Justification for Cont. Inpt. Impairment in reality construction. Impairment in safety. High risk for decompensation in a less restrictive environment. Discharge Planning Counselor informs me that the patient's [facility] packet was mailed this morning. Request HC Surrog/Guard Advoc?: Yes Problem Qualifiers (1) Psychosis: Qualified Code: F28 - Other psychotic disorder not due to substance or known physiological condition Dominick Moreno MD Sep 10, 2016 09:46
[2016-09-10] MEDS: HALOPERIDOL LACTATE 5 MG/ML AMP IM PRN (10:15)
[2016-09-10 13:55] VITALS: BP 119/78; PULSE 108; RESP 16; TEMP 98.3
[2016-09-10 15:30] VITALS: BP 124/79; PULSE 101; RESP 19; TEMP 97.3; O2SAT 98
--- NOTE | 2016-09-10 16:08 | HHI.PR ---
Subjective Remarks Reconsulted for hypertensive medication noncompliance. Patient seen and examined today. Patient denies any acute medical complaints. No headache, dizziness, chest pain, shortness of breath or abdominal pain. Now has clonidine patch with blood pressures adequately controlled. Objective Vitals Vital Signs Date Time Temp Pulse Resp B/P Pulse Ox O2 Delivery O2 Flow Rate FiO2 09/10/16 15:30 97.3 101 19 124/79 98 09/10/16 13:55 98.3 108 16 119/78 09/10/16 06:00 97.3 74 18 145/98 99 09/09/16 21:00 82 18 133/77 96 Imaging Last Impressions Head CT 08/08/16 0000 Signed Impressions: Service Date/Time: Monday, August 08, 2016 16:45 - CONCLUSION: Unremarkable study. Rogelio Green MD Objective Remarks GENERAL: This is a well-nourished, well-developed patient, in no apparent distress. Awake and alert. Ambulating in the hallway. SKIN: No rashes or ecchymoses. Lipoma noted at base of neck. Cool and dry. HEENT: Atraumatic. Normocephalic. EOMI. MMM. CARDIOVASCULAR: Regular rate and rhythm without murmurs, gallops, or rubs. RESPIRATORY: Clear to auscultation. Breath sounds equal bilaterally. No wheezes , rales, or rhonchi. GASTROINTESTINAL: Abdomen soft, non-tender, nondistended. No hepato-splenomegaly , or palpable masses. No guarding. MUSCULOSKELETAL: Extremities without clubbing, cyanosis, or edema. No joint tenderness, effusion, or edema noted. No calf tenderness. NEUROLOGICAL: Awake and alert. Able to move all extremities. PSYCHIATRIC: Pressured speech, tangential thoughts Medications and IVs Current Medications Medications (Trade) Dose Ordered Sig/Elvira Route Start Time Stop Time Status Last Admin (Ativan) 1 mg Q6H PRN PO 08/09/16 09:15 09/02/16 20:33 (Ativan Inj) 1 mg Q6H PRN IM 08/09/16 09:15 09/09/16 08:55 (Tylenol) 650 mg Q4H PRN PO 08/09/16 09:15 (Milk Of Magnesia Liq) 30 ml DAILY PRN PO 08/09/16 09:15 (Mag-Al Plus Susp Liq) 30 ml Q6H PRN PO 08/09/16 09:15 (Habitrol 21 Mg Patch.24 Hr) 1 patch DAILY T-DERMAL 08/09/16 09:15 09/03/16 09:04 Miscellaneous Information 1 HS T-DERMAL 08/09/16 21:00 09/03/16 21:00 (Cogentin) 1 mg Q12HR PRN PO 08/10/16 12:15 (Cogentin Inj) 1 mg Q12HR PRN IM 08/10/16 12:15 (Ambien) 5 mg HS PRN PO 08/10/16 12:15 08/29/16 20:54 (Pill Splitter) 1 ea UNSCH PRN OTHER 08/19/16 12:45 (Prinivil) 20 mg DAILY PO 08/31/16 09:00 09/07/16 08:46 (TEGretol) 200 mg Q12HR PO 09/03/16 21:00 09/07/16 20:49 (Inderal) 10 mg Q8HR PO 09/08/16 14:00 09/10/16 06:00 (Catapres) 0.1 mg Q8HR PRN PO 09/09/16 14:00 (Catapres-Tts 0.1mg Patch.7d) 1 patch Q7D T-DERMAL 09/09/16 15:00 09/09/16 16:26 (Haldol Inj) 10 mg BID PRN IM 09/09/16 14:45 09/10/16 10:15 Miscellaneous Information 1 Q7D T-DERMAL 09/16/16 09:00 A/P Problem List: (1) Psychosis ICD Code: F29 Status: Acute (2) HTN (hypertension) ICD Code: I10 Status: Acute Assessment and Plan 60-year-old male with psychosis admitted to psychiatric unit asked to be seen as a reconsultation for hypertensive medication noncompliance. Psychosis - Management per psychiatric team Hypertension, uncontrolled due to medication noncompliance - Patient now has a clonidine patch with good control of blood pressure - Continue to monitor Tachycardia - Mild - Patient refusing to take propanolol - Will continue to monitor DVT prophylaxis - Patient is ambulatory Discussed with patient, nursing staff and Dr. 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
[2016-09-10] MEDS: REMOVE OLD NICODERM (NICOTINE) PATCH T-DERMAL SCH (20:16)
[2016-09-11] MEDS: PROPRANOLOL HCL 10 MG TAB PO SCH ×3 (06:00→22:00)
[2016-09-11 07:32] VITALS: BP 138/67; PULSE 70; RESP 18; TEMP 97.8; O2SAT 98
[2016-09-11] MEDS: carBAMazepine 200 MG TAB PO SCH ×2 (08:49→21:50)
[2016-09-11] MEDS: LISINOPRIL 20 MG TAB PO SCH (08:49)
[2016-09-11] MEDS: NICOTINE 21 MG/24 HR PATCH T-DERMAL SCH (08:50)
--- NOTE | 2016-09-11 12:09 | HHI.PYPN ---
Subjective Remarks Pt seen and discussed with staff. He is on 1:1 after he attempted to gouge eye out after he decompensated due to refusing medications. Today he has been compliant with medications and has been less labile. No medication side effects. Objective Alert: Yes [place]: Person Mood: Calm Affect: Blunted Memory Intact: Comment (fair) Hallucinations: Auditory (appears to be responding internaly) Delusions: Yes Delusion Type: Paranoid Suicidal: Ideation (no SI today) Homicidal: Ideation (no HI) Insight/Judgment poor Vitals/IOs Vital Signs Date Time Temp Pulse Resp B/P Pulse Ox O2 Delivery O2 Flow Rate FiO2 09/11/16 07:32 97.8 70 18 138/67 98 Assessment & Plan Problem List: (1) Psychosis ICD Code: F29 Assessment & Plan Continue to encourage compliant. Continue current tx plan. Estimated LOS: days Justification for Cont. Inpt. impairments in safety Request HC Surrog/Guard Advoc?: Yes Problem Qualifiers (1) Psychosis: Qualified Code: F28 - Other psychotic disorder not due to substance or known physiological condition Peggy Schumacher MD Sep 11, 2016 12:09
[2016-09-11 15:20] VITALS: BP 120/58; PULSE 79; RESP 19; TEMP 98.5; O2SAT 97
[2016-09-11] MEDS: REMOVE OLD NICODERM (NICOTINE) PATCH T-DERMAL SCH (21:00)
[2016-09-11] MEDS: ZOLPIDEM TARTRATE 5 MG TAB PO PRN (21:50)
[2016-09-12 06:01] VITALS: BP 113/59; PULSE 69; RESP 18; TEMP 98; O2SAT 97
[2016-09-12] MEDS: PROPRANOLOL HCL 10 MG TAB PO SCH ×3 (06:30→20:37)
[2016-09-12] MEDS: LISINOPRIL 20 MG TAB PO SCH ×2 (08:33→08:39)
[2016-09-12] MEDS: carBAMazepine 200 MG TAB PO SCH ×2 (08:33→20:37)
[2016-09-12] MEDS: NICOTINE 21 MG/24 HR PATCH T-DERMAL SCH (08:43)
--- NOTE | 2016-09-12 14:41 | HHI.PYPN ---
Subjective Remarks Pt seen and discussed with staff. Pt remains intrusive but has been more easily redirected. He is compliant with medications. Speech remains pressured and rambling. He is focused on MD procuring a police report. Objective Alert: Yes [place]: Person Mood: Other (elevated) Affect: Labile Memory Intact: Comment (fair) Hallucinations: Auditory (appears to be responding internaly) Delusions: Yes Delusion Type: Paranoid Suicidal: Ideation (no SI today) Homicidal: Ideation (no HI) Insight/Judgment poor Labs Test 09/11/16 18:52 Ammonia 29 MCMOL/L Vitals/IOs Vital Signs Date Time Temp Pulse Resp B/P Pulse Ox O2 Delivery O2 Flow Rate FiO2 09/12/16 06:01 98.0 69 18 113/59 97 Assessment & Plan Problem List: (1) Psychosis ICD Code: F29 Assessment & Plan continue current tx plan. Estimated LOS: days Justification for Cont. Inpt. impairments in self care and reality construction Request HC Surrog/Guard Advoc?: Yes Problem Qualifiers (1) Psychosis: Qualified Code: F28 - Other psychotic disorder not due to substance or known physiological condition Peggy Schumacher MD Sep 12, 2016 14:40
--- NOTE | 2016-09-12 15:20 | HHI.PR ---
Subjective Remarks Reconsulted for hypertensive medication noncompliance. Patient seen and examined today. Patient denies any pain or discomfort. Appears to deny any acute medical complaints. Objective Vitals Vital Signs Date Time Temp Pulse Resp B/P Pulse Ox O2 Delivery O2 Flow Rate FiO2 09/12/16 06:01 98.0 69 18 113/59 97 09/11/16 15:20 98.5 79 19 120/58 97 Imaging Last Impressions Head CT 08/08/16 0000 Signed Impressions: Service Date/Time: Monday, August 08, 2016 16:45 - CONCLUSION: Unremarkable study. Rogelio Green MD Objective Remarks GENERAL: This is a well-nourished, well-developed patient, in no apparent distress. Awake and alert. Ambulating in the community room. SKIN: No rashes or ecchymoses. Lipoma noted at base of neck. Cool and dry. HEENT: Atraumatic. Normocephalic. EOMI. MMM. CARDIOVASCULAR: Regular rate and rhythm without murmurs, gallops, or rubs. RESPIRATORY: Clear to auscultation. Breath sounds equal bilaterally. No wheezes , rales, or rhonchi. GASTROINTESTINAL: Abdomen soft, non-tender, nondistended. No hepato-splenomegaly , or palpable masses. No guarding. MUSCULOSKELETAL: Extremities without clubbing, cyanosis, or edema. No joint tenderness, effusion, or edema noted. No calf tenderness. NEUROLOGICAL: Awake and alert. Able to move all extremities. PSYCHIATRIC: Pressured speech, tangential thoughts Medications and IVs Current Medications Medications (Trade) Dose Ordered Sig/Elvira Route Start Time Stop Time Status Last Admin (Ativan) 1 mg Q6H PRN PO 08/09/16 09:15 09/02/16 20:33 (Ativan Inj) 1 mg Q6H PRN IM 08/09/16 09:15 09/09/16 08:55 (Tylenol) 650 mg Q4H PRN PO 08/09/16 09:15 (Milk Of Magnesia Liq) 30 ml DAILY PRN PO 08/09/16 09:15 (Mag-Al Plus Susp Liq) 30 ml Q6H PRN PO 08/09/16 09:15 (Habitrol 21 Mg Patch.24 Hr) 1 patch DAILY T-DERMAL 08/09/16 09:15 09/03/16 09:04 Miscellaneous Information 1 HS T-DERMAL 08/09/16 21:00 09/03/16 21:00 (Cogentin) 1 mg Q12HR PRN PO 08/10/16 12:15 (Cogentin Inj) 1 mg Q12HR PRN IM 08/10/16 12:15 (Ambien) 5 mg HS PRN PO 08/10/16 12:15 09/11/16 21:50 (Pill Splitter) 1 ea UNSCH PRN OTHER 08/19/16 12:45 (Prinivil) 20 mg DAILY PO 08/31/16 09:00 09/11/16 08:49 (TEGretol) 200 mg Q12HR PO 09/03/16 21:00 09/12/16 08:33 (Inderal) 10 mg Q8HR PO 09/08/16 14:00 09/12/16 06:30 (Catapres) 0.1 mg Q8HR PRN PO 09/09/16 14:00 (Haldol Inj) 10 mg BID PRN IM 09/09/16 14:45 09/10/16 10:15 Miscellaneous Information 1 Q7D T-DERMAL 09/16/16 09:00 A/P Problem List: (1) Psychosis ICD Code: F29 Status: Acute (2) HTN (hypertension) ICD Code: I10 Status: Acute Assessment and Plan 60-year-old male with psychosis admitted to psychiatric unit asked to be seen as a reconsultation for hypertensive medication noncompliance. Psychosis - Management per psychiatric team Hypertension, uncontrolled due to medication noncompliance - Blood pressure well controlled off of clonidine patch and resumption of oral antihypertensives - Continue propanolol and lisinopril - Continue clonidine 0.1 mg by mouth every 8 prn with parameters Tachycardia - Resolved with patient complying with propanolol use - Continue propranolol DVT prophylaxis - Patient is ambulatory Patient is medically stable. We'll sign off for now. Please reconsult if needed. Discussed with patient, nursing staff and Dr. 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
[2016-09-12 15:21] VITALS: BP 149/84; PULSE 88; RESP 16; TEMP 98.2; O2SAT 98
[2016-09-12 19:25] VITALS: BP 149/84; PULSE 75; TEMP 98.2; O2SAT 98
[2016-09-12] MEDS: ZOLPIDEM TARTRATE 5 MG TAB PO PRN (20:37)
[2016-09-12] MEDS: REMOVE OLD NICODERM (NICOTINE) PATCH T-DERMAL SCH (20:38)
[2016-09-13] MEDS: PROPRANOLOL HCL 10 MG TAB PO SCH ×3 (05:47→22:00)
[2016-09-13 05:53] VITALS: BP 130/59; PULSE 80; RESP 18; TEMP 98.4; O2SAT 99
[2016-09-13] MEDS: LISINOPRIL 20 MG TAB PO SCH (08:17)
[2016-09-13] MEDS: carBAMazepine 200 MG TAB PO SCH ×2 (08:17→20:29)
[2016-09-13] MEDS: NICOTINE 21 MG/24 HR PATCH T-DERMAL SCH (09:00)
--- NOTE | 2016-09-13 09:41 | HHI.PYPN ---
Subjective Remarks Patient seen and examined with counselor and nurse. Chart reviewed. Case discussed with nursing staff reports that the patient is much more pleasant and redirectable than he was before the weekend. On my examination today, the patient is indeed somewhat calmer and significantly less dysphoric than when I saw him before the weekend. He tells me "[place]." He denies any suicidal ideation. Remains internally preoccupied. Particularly resistant to blood draws and says "what tells you before, urine tells you afterward." No side effects from medications. No physical complaints. Review of Systems ROS Limitations: Psychotic, Poor Historian Except as stated in HPI: all other systems reviewed are Neg Objective Alert: Yes [place]: Person Mood: Happy Affect: Labile (childlike) Memory Intact: Comment (Remains fair) Hallucinations: Auditory (Int stim) Delusions: Yes Delusion Type: Paranoid Suicidal: Ideation (Denies SI) Homicidal: Ideation (No HI) Insight/Judgment Poor Remarks No abnormal motor movements noted although the patient is somewhat fidgety. Thought process disorganized. Speech rambling. Grooming and hygiene poor. Labs Labs reviewed. I note that patient's ammonia level normalized over the weekend. Vitals/IOs Vital Signs Date Time Temp Pulse Resp B/P Pulse Ox O2 Delivery O2 Flow Rate FiO2 09/13/16 05:53 98.4 80 18 130/59 99 Assessment & Plan Problem List: (1) Psychosis ICD Code: F29 Assessment & Plan Patient is once again adherent with his carbamazepine. Continue Haldol IM PRN agitation, although patient has not required a dose since 09/10. Invega Sustenna on board, next dose due end of this month. Discontinue 1:1 but continue to monitor closely on inpatient unit. Continue other medications and care as ordered. Justification for Cont. Inpt. Impairment in self-care. Impairment in reality construction. High risk for decompensation in a less restrictive environment. Discharge Planning [facility] psychiatric hospital referral Request HC Surrog/Guard Advoc?: Yes Problem Qualifiers (1) Psychosis: Qualified Code: F28 - Other psychotic disorder not due to substance or known physiological condition Dominick Moreno MD Sep 13, 2016 09:41
[2016-09-13 14:29] VITALS: BP 155/71; PULSE 80
[2016-09-13 18:29] VITALS: BP 112/75; PULSE 78; RESP 18; TEMP 98; O2SAT 96
[2016-09-13] MEDS: REMOVE OLD NICODERM (NICOTINE) PATCH T-DERMAL SCH (20:29)
[2016-09-14 05:59] VITALS: BP 117/58; PULSE 71; RESP 17; TEMP 97.1
[2016-09-14] MEDS: PROPRANOLOL HCL 10 MG TAB PO SCH ×3 (06:00→22:00)
[2016-09-14] MEDS: carBAMazepine 200 MG TAB PO SCH ×2 (08:56→20:09)
[2016-09-14] MEDS: NICOTINE 21 MG/24 HR PATCH T-DERMAL SCH (08:56)
[2016-09-14] MEDS: LISINOPRIL 20 MG TAB PO SCH (08:57)
--- NOTE | 2016-09-14 09:27 | HHI.PYPN ---
Subjective Remarks Patient seen and examined. Chart reviewed. Case discussed in treatment team with counselor, nurse and occupational therapist. Per nursing staff, patient has exhibited no problematic behaviors since he was taken off one-to-one. On my examination today, the patient remains a little fidgety and hyperkinetic. Speech remains rambling and thought process fairly disorganized. He says that his mood is "pretty good." He says that he is "glad I got off restrictions." Smiles and laughs to himself at times. Regarding the medication, the patient tells me that it is coated in "ceramics. It tastes like paint. Pain doesn't dissolve." Denies suicidal ideation and notes "I'm trying to help the world if they'll listen." No physical complaints. No side effects from medications. Review of Systems ROS Limitations: Poor Historian Except as stated in HPI: all other systems reviewed are Neg Objective Alert: Yes [place]: Person Mood: Happy Affect: Euthymic Memory Intact: Comment (not formally assessed today) Hallucinations: Auditory (remains somewhat internally preoccupied) Delusions: Yes Delusion Type: Grandiose, Paranoid Suicidal: Ideation (Denies SI) Homicidal: Ideation (No HI) Insight/Judgment Poor Remarks No hand tremor, no dystonia, no dyskinesia noted. Thought process disorganized. Speech rambling. Grooming and hygiene poor. Labs Labs reviewed. Vitals/IOs Vital Signs Date Time Temp Pulse Resp B/P Pulse Ox O2 Delivery O2 Flow Rate FiO2 09/14/16 05:59 97.1 71 17 117/58 09/13/16 18:29 96 Assessment & Plan Problem List: (1) Psychosis ICD Code: F29 Assessment & Plan Continue carbamazepine as ordered. Invega Sustenna is on board. Continue to monitor on the high acuity unit. Continue other medications and care as ordered. Justification for Cont. Inpt. Impairment in self-care. Impairment in reality construction. High risk for decompensation in a less restrictive environment. Discharge Planning [facility] referral. Counselor informs me that patient's case is under review for possible acceptance on to the [facility] wait list. Request HC Surrog/Guard Advoc?: Yes Problem Qualifiers (1) Psychosis: Qualified Code: F28 - Other psychotic disorder not due to substance or known physiological condition Dominick Moreno MD Sep 14, 2016 09:27
[2016-09-14] MEDS: ZOLPIDEM TARTRATE 5 MG TAB PO PRN (20:09)
[2016-09-14] MEDS: REMOVE OLD NICODERM (NICOTINE) PATCH T-DERMAL SCH (20:10)
[2016-09-14 21:50] VITALS: BP 115/60; PULSE 99; RESP 18; TEMP 98.2; O2SAT 97
[2016-09-15] MEDS: PROPRANOLOL HCL 10 MG TAB PO SCH ×4 (05:45→21:44)
[2016-09-15 06:09] VITALS: BP 133/72; PULSE 80; RESP 16; TEMP 98.2; O2SAT 96
[2016-09-15] MEDS: carBAMazepine 200 MG TAB PO SCH ×2 (08:28→21:42)
[2016-09-15] MEDS: NICOTINE 21 MG/24 HR PATCH T-DERMAL SCH (08:28)
[2016-09-15] MEDS: LISINOPRIL 20 MG TAB PO SCH (08:28)
--- NOTE | 2016-09-15 10:03 | HHI.PYPN ---
Subjective Remarks Patient seen and examined with counselor and nurse. Chart reviewed. Case discussed with nursing staff who reports that the patient is more or less unchanged today. On my examination today, the patient remains somewhat fidgety and hyperkinetic. Thought process disorganized. He tells me, "filled it up, upstairs, downstairs." Tells me he no longer wants anyone to require blood draws for labs, "urine samples for everyone!" He is able to speak in a somewhat coherent fashion about his displeasure at being woken up in the morning for vital signs. No physical complaints. No side effects from meds. Review of Systems ROS Limitations: Psychotic, Poor Historian Except as stated in HPI: all other systems reviewed are Neg Objective Alert: Yes [place]: Person Mood: Happy Affect: Euthymic Memory Intact: Comment (not formally assessed today) Hallucinations: Other (no AVH) Delusions: No Delusion Type: Other (no onel delusions) Suicidal: Ideation (no SI) Homicidal: Ideation (no HI) Insight/Judgment Poor Remarks No new motor abnormalities noted Labs Labs reviewed. Vitals/IOs Vital Signs Date Time Temp Pulse Resp B/P Pulse Ox O2 Delivery O2 Flow Rate FiO2 09/15/16 06:09 98.2 80 16 133/72 96 Assessment & Plan Problem List: (1) Psychosis ICD Code: F29 Assessment & Plan Continue current psychotropic medications as ordered. Continue to monitor on the inpatient psychiatric unit. Continue other medications and care as ordered. Justification for Cont. Inpt. Impairment in reality construction. Impairment in self-care. High risk for decompensation in a less restrictive environment. 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
[2016-09-15 18:15] VITALS: BP 110/65; PULSE 83; RESP 18; TEMP 98; O2SAT 98
[2016-09-15] MEDS: REMOVE OLD NICODERM (NICOTINE) PATCH T-DERMAL SCH (21:00)
[2016-09-16] MEDS: PROPRANOLOL HCL 10 MG TAB PO SCH ×3 (06:00→20:54)
[2016-09-16 06:12] VITALS: BP 106/55; PULSE 65; RESP 17; TEMP 97.3; O2SAT 97
[2016-09-16] MEDS: LISINOPRIL 20 MG TAB PO SCH (08:30)
[2016-09-16] MEDS: NICOTINE 21 MG/24 HR PATCH T-DERMAL SCH (08:30)
[2016-09-16] MEDS: carBAMazepine 200 MG TAB PO SCH ×2 (08:30→20:53)
[2016-09-16] MEDS: REMOVE OLD PATCH T-DERMAL SCH (09:00)
--- NOTE | 2016-09-16 09:51 | HHI.PYPN ---
Subjective Remarks Patient seen and examined. Chart reviewed. Case discussed with nursing staff. Patient is more or less unchanged today. Thought process disorganized in speech rambling. He is in a good mood today. He speaks for some time about wanting to take a shower. No side effects from medications. No physical complaints. Review of Systems ROS Limitations: Poor Historian Except as stated in HPI: all other systems reviewed are Neg Objective Alert: Yes [place]: Person Mood: Happy Affect: Euthymic (childlike) Memory Intact: Comment (not formally assessed) Hallucinations: Other (no AVH) Delusions: No Delusion Type: Other (no delusions) Suicidal: Ideation (no SI) Homicidal: Ideation (no HI) Insight/Judgment Poor Remarks Thought process remains somewhat disorganized Labs Labs reviewed. Vitals/IOs Vital Signs Date Time Temp Pulse Resp B/P Pulse Ox O2 Delivery O2 Flow Rate FiO2 09/16/16 06:12 97.3 65 17 106/55 97 Assessment & Plan Problem List: (1) Psychosis ICD Code: F29 Assessment & Plan Continue carbamazepine as ordered. Patient is next due for Invega Sustenna around 09/29. We might consider increasing the dose at that time. Patient has not required any additional Haldol as needed since 09/10. Continue to monitor on the high acuity unit. Continue other medications and care as ordered. Justification for Cont. Inpt. Impairment in self-care. High risk for decompensation in a less restrictive environment. Discharge Planning [facility] psychiatric hospital referral. 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
[2016-09-16 15:55] VITALS: BP 130/58; PULSE 97; RESP 18; TEMP 97.1; O2SAT 98
[2016-09-16] MEDS: REMOVE OLD NICODERM (NICOTINE) PATCH T-DERMAL SCH (20:56)
[2016-09-17 05:59] VITALS: BP 137/75; PULSE 60; RESP 16; TEMP 95.5; O2SAT 97
[2016-09-17] MEDS: PROPRANOLOL HCL 10 MG TAB PO SCH ×3 (06:12→21:47)
[2016-09-17] MEDS: carBAMazepine 200 MG TAB PO SCH ×2 (08:44→21:47)
[2016-09-17] MEDS: LISINOPRIL 20 MG TAB PO SCH (08:44)
[2016-09-17] MEDS: NICOTINE 21 MG/24 HR PATCH T-DERMAL SCH (08:47)
--- NOTE | 2016-09-17 10:29 | HHI.PYPN ---
Subjective Remarks Patient seen and examined with nurse. Chart reviewed. Case discussed with nursing staff. On my examination today, patient remains disorganized. He is rambling about how he likes a little more milk and fewer eggs in his omelette. This leads to a discussion about [place] desire [place] live [place] farm, and he then speaks for a while about hatching chicken eggs in an incubator. Affect euthymic and childlike. No side effects from medications. No physical complaints. Review of Systems ROS Limitations: Poor Historian Except as stated in HPI: all other systems reviewed are Neg Objective Alert: Yes [place]: Person Mood: Happy Affect: Euthymic Memory Intact: Comment (Not assessed) Hallucinations: Other (No AVH) Delusions: No Delusion Type: Other (No delusional material) Suicidal: Ideation (No SI voiced) Homicidal: Ideation (No HI voiced) Insight/Judgment Poor Remarks Grooming and hygiene fair today. Labs Labs reviewed. Vitals/IOs Vital Signs Date Time Temp Pulse Resp B/P Pulse Ox O2 Delivery O2 Flow Rate FiO2 09/17/16 05:59 95.5 60 16 137/75 97 Assessment & Plan Problem List: (1) Psychosis ICD Code: F29 Assessment & Plan Continue current psychotropics as ordered. Continue other medications and care as ordered. Justification for Cont. Inpt. High risk for decompensation in a less restrictive environment. 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
[2016-09-17 17:00] VITALS: BP 109/53; PULSE 83; RESP 17; TEMP 98.6; O2SAT 97
[2016-09-17] MEDS: REMOVE OLD NICODERM (NICOTINE) PATCH T-DERMAL SCH (21:00)
[2016-09-18 06:15] VITALS: BP 114/63; PULSE 70; RESP 17; TEMP 97.8; O2SAT 97
[2016-09-18] MEDS: carBAMazepine 200 MG TAB PO SCH ×2 (08:40→21:20)
[2016-09-18] MEDS: PROPRANOLOL HCL 10 MG TAB PO SCH ×3 (08:40→21:20)
[2016-09-18] MEDS: LISINOPRIL 20 MG TAB PO SCH (08:40)
[2016-09-18] MEDS: NICOTINE 21 MG/24 HR PATCH T-DERMAL SCH (09:00)
--- NOTE | 2016-09-18 15:58 | HHI.PYPN ---
Subjective Remarks Patient was seen and case discussed with nursing. Patient remains pleasantly childlike. He is hyperverbal and pressured difficult to understand. Per nursing this morning he was labile and agitated kicking, yelling and was able to be redirected with no ETO. They say that he is not sleeping at night and sleeping during the day and they are working on keeping him awake throughout the day today. Compliant with medications Objective Alert: Yes [place]: Person Mood: Happy Affect: Euthymic Memory Intact: Comment (Not assessed) Hallucinations: Other (No AVH) Delusions: No Delusion Type: Other (difficult to understand to determine) Suicidal: Ideation (No SI voiced) Homicidal: Ideation (No HI voiced) Insight/Judgment Poor Vitals/IOs Vital Signs Date Time Temp Pulse Resp B/P Pulse Ox O2 Delivery O2 Flow Rate FiO2 09/18/16 06:15 97.8 70 17 114/63 97 Assessment & Plan Problem List: (1) Psychosis ICD Code: F29 Assessment & Plan Continue current treatment plan Justification for Cont. Inpt. 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
[2016-09-18] MEDS: REMOVE OLD NICODERM (NICOTINE) PATCH T-DERMAL SCH (21:00)
[2016-09-18] MEDS: LORazepam 1 MG TAB PO PRN (21:20)
[2016-09-19] MEDS: PROPRANOLOL HCL 10 MG TAB PO SCH ×3 (06:03→21:12)
[2016-09-19] MEDS: LISINOPRIL 20 MG TAB PO SCH (08:22)
[2016-09-19] MEDS: carBAMazepine 200 MG TAB PO SCH ×2 (08:22→21:00)
[2016-09-19] MEDS: NICOTINE 21 MG/24 HR PATCH T-DERMAL SCH (08:24)
--- NOTE | 2016-09-19 16:42 | HHI.PYPN ---
Subjective Remarks Patient was seen and case discussed with nursing. Patient remains childlike, hyperverbal, with pressured speech and flight of ideas. Compliant with medications and behaving well on the unit Objective Alert: Yes [place]: Person Mood: Happy Affect: Euthymic Memory Intact: Comment (Not assessed) Hallucinations: Other (No AVH) Delusions: No Delusion Type: Other (difficult to understand to determine) Suicidal: Ideation (No SI voiced) Homicidal: Ideation (No HI voiced) Insight/Judgment Poor Vitals/IOs Vital Signs Date Time Temp Pulse Resp B/P Pulse Ox O2 Delivery O2 Flow Rate FiO2 09/18/16 06:15 97.8 70 17 114/63 97 Assessment & Plan Problem List: (1) Psychosis ICD Code: F29 Assessment & Plan Continue current treatment plan Justification for Cont. Inpt. 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
[2016-09-19 20:00] VITALS: BP 143/93; PULSE 73; RESP 18; TEMP 95.9; O2SAT 96
[2016-09-19] MEDS: REMOVE OLD NICODERM (NICOTINE) PATCH T-DERMAL SCH (21:00)
[2016-09-19] MEDS: LORazepam 1 MG TAB PO PRN (21:13)
[2016-09-20 05:46] VITALS: BP 106/67; PULSE 73; RESP 18; TEMP 97; O2SAT 94
[2016-09-20] MEDS: PROPRANOLOL HCL 10 MG TAB PO SCH ×3 (05:59→20:35)
[2016-09-20] MEDS: carBAMazepine 200 MG TAB PO SCH ×2 (09:00→20:35)
[2016-09-20] MEDS: LISINOPRIL 20 MG TAB PO SCH (09:00)
--- NOTE | 2016-09-20 09:14 | HHI.PYPN ---
Subjective Remarks Patient seen and examined with counselor and nurse. Chart reviewed. Case discussed with nursing staff. No behavioral problems noted. On my examination today, patient is calm. Remains disorganized and in other respects at recent baseline. No evident side effects from medications. No physical complaints. Review of Systems ROS Limitations: Poor Historian Except as stated in HPI: all other systems reviewed are Neg Objective Alert: Yes [place]: Person Mood: Calm Affect: Euthymic Memory Intact: Comment (Not assessed) Hallucinations: Other (No AVH) Delusions: No Delusion Type: Other (remains somewhat difficult to assess because of thought disorganization) Suicidal: Ideation (no SI) Homicidal: Ideation (no HI) Insight/Judgment Poor Remarks Thought process disorganized Labs Labs reviewed. Vitals/IOs Vital Signs Date Time Temp Pulse Resp B/P Pulse Ox O2 Delivery O2 Flow Rate FiO2 09/20/16 05:46 97.0 73 18 106/67 94 Assessment & Plan Problem List: (1) Psychosis ICD Code: F29 Assessment & Plan Continue carbamazepine as ordered. Patient has Invega Sustenna in place. Continue to monitor on the inpatient unit. Continue other medications and care as ordered. Justification for Cont. Inpt. 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
[2016-09-20 17:58] VITALS: BP 119/66; PULSE 82; RESP 18; TEMP 97.9; O2SAT 97
[2016-09-20] MEDS: REMOVE OLD NICODERM (NICOTINE) PATCH T-DERMAL SCH (20:36)
[2016-09-21 05:43] VITALS: BP 157/71; PULSE 69; RESP 18; TEMP 98; O2SAT 98
[2016-09-21] MEDS: PROPRANOLOL HCL 10 MG TAB PO SCH ×4 (05:54→21:49)
[2016-09-21] MEDS: LORazepam 1 MG TAB PO PRN ×2 (09:00→20:49)
[2016-09-21] MEDS: LISINOPRIL 20 MG TAB PO SCH (09:00)
[2016-09-21] MEDS: carBAMazepine 200 MG TAB PO SCH ×2 (09:00→20:48)
--- NOTE | 2016-09-21 11:37 | HHI.PYPN ---
Subjective Remarks Patient seen and examined. Chart reviewed. Case discussed in treatment team with nurse, counselor and occupational therapist. Nurse reports that the patient has been no real behavioral problem. Occupational therapist reports that the patient rarely attends groups. Counselor has explored alternative placement options to [facility], and there is an assisted living facility in the area that may be interested in the patient. On my examination today, the patient dozing in his room. He is easily awakened and is calm and pleasant on examination. He remains disorganized with respect to his thought process, although he does have some moments of greater lucidity. No SI or HI. No side effects from medications. No physical complaints. Review of Systems ROS Limitations: Poor Historian Except as stated in HPI: all other systems reviewed are Neg Objective Alert: Yes [place]: Person Mood: Calm Affect: Blunted Memory Intact: Comment (Not assessed) Hallucinations: Other (no hallucinations) Delusions: No Delusion Type: Other (no onel delusional material) Suicidal: Ideation (no SI) Homicidal: Ideation (no HI) Insight/Judgment Poor Remarks No motor abnormalities noted. Thought process remains somewhat disorganized. Labs Labs reviewed. Vitals/IOs Vital Signs Date Time Temp Pulse Resp B/P Pulse Ox O2 Delivery O2 Flow Rate FiO2 09/21/16 05:43 98.0 69 18 157/71 98 Assessment & Plan Problem List: (1) Psychosis ICD Code: F29 Assessment & Plan Continue current psychiatric medications as ordered. Continue other medications and care as ordered. Justification for Cont. Inpt. High risk for decompensation in a less restrictive environment Discharge Planning [facility] psychiatric hospital referral. [facility] placement might represent an alternative as the nursing staff reports that the patient, although disorganized , is independent for his basic ADLs and so might function fairly well in a structured living environment. 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
[2016-09-21] MEDS: REMOVE OLD NICODERM (NICOTINE) PATCH T-DERMAL SCH (21:00)
[2016-09-22 05:41] VITALS: BP 90/52; PULSE 71; RESP 18; TEMP 98.1; O2SAT 95
[2016-09-22] MEDS: PROPRANOLOL HCL 10 MG TAB PO SCH ×3 (06:00→21:02)
[2016-09-22] MEDS: LISINOPRIL 20 MG TAB PO SCH (09:00)
[2016-09-22] MEDS: carBAMazepine 200 MG TAB PO SCH ×2 (10:05→20:01)
--- NOTE | 2016-09-22 10:09 | HHI.PYPN ---
Subjective Remarks Patient seen and examined with counselor and nurse. Chart reviewed. Case discussed with nursing staff reports patient has been a behavioral problem. He is reportedly catching up on sleep after several days of somewhat poorer sleep. On my examination today, the patient remained somewhat disorganized. He is calm and pleasant if somewhat childlike on examination. No hallucinations. No SI or HI. No side effects from medications. No physical complaints. Review of Systems ROS Limitations: Poor Historian Except as stated in HPI: all other systems reviewed are Neg Objective Alert: Yes [place]: Person Mood: Calm Affect: Blunted (childlike) Memory Intact: Comment (Not assessed) Hallucinations: Other (no hallucinatory material) Delusions: No Delusion Type: Other (no delusions) Suicidal: Ideation (no SI) Homicidal: Ideation (no HI) Insight/Judgment Poor Remarks Some ongoing thought disorganization. No motoric abnormalities noted. Labs Labs reviewed. Vitals/IOs Vital Signs Date Time Temp Pulse Resp B/P Pulse Ox O2 Delivery O2 Flow Rate FiO2 09/22/16 05:41 98.1 71 18 90/52 95 Assessment & Plan Problem List: (1) Psychosis ICD Code: F29 Assessment & Plan Continue current psychiatric medications as ordered. Continue other medications and care as ordered. Justification for Cont. Inpt. High risk for decompensation in a less restrictive environment Discharge Planning Possible placement. Counselors working on this. [facility] referral represents alternative plan. 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
[2016-09-22 14:33] VITALS: BP 118/68; PULSE 94; RESP 18; TEMP 98.2; O2SAT 98
[2016-09-22 18:22] VITALS: BP 118/68; PULSE 94; RESP 18; TEMP 98.6; O2SAT 96
[2016-09-22] MEDS: ZOLPIDEM TARTRATE 5 MG TAB PO PRN (20:01)
[2016-09-22] MEDS: REMOVE OLD NICODERM (NICOTINE) PATCH T-DERMAL SCH (20:01)
[2016-09-23] MEDS: PROPRANOLOL HCL 10 MG TAB PO SCH ×3 (05:15→21:30)
[2016-09-23 05:56] VITALS: BP 156/85; PULSE 92; RESP 18; TEMP 98.7; O2SAT 96
[2016-09-23] MEDS: REMOVE OLD PATCH T-DERMAL SCH (09:00)
[2016-09-23] MEDS: carBAMazepine 200 MG TAB PO SCH ×2 (09:08→21:00)
[2016-09-23] MEDS: LISINOPRIL 20 MG TAB PO SCH (09:08)
--- NOTE | 2016-09-23 11:53 | HHI.PYPN ---
Subjective Remarks Patient seen and examined with nurse. Chart reviewed. Case discussed with nursing staff. No behavioral issues noted. On my examination today, the patient is gregarious and friendly. His thought process remains disorganized. We discussed possibility of discharge to assisted living facility, and he is excited at the prospect. He is hopeful that he will be able to do some gardening or perhaps have a potted plant to take care of there. No side effects from medications. No physical complaints today. Review of Systems ROS Limitations: Poor Historian Except as stated in HPI: all other systems reviewed are Neg Objective Alert: Yes [place]: Person Mood: Happy Affect: Euthymic Memory Intact: Comment (not formally assessed) Hallucinations: Other (no AVH) Delusions: No Delusion Type: Other (no delusional material) Suicidal: Ideation (no suicidal ideation) Homicidal: Ideation (no homicidal ideation) Insight/Judgment Poor Remarks No motor abnormalities noted. Thought process disorganized. Grooming and hygiene fair. Labs Labs reviewed. Vitals/IOs Vital Signs Date Time Temp Pulse Resp B/P Pulse Ox O2 Delivery O2 Flow Rate FiO2 09/23/16 05:56 98.7 92 18 156/85 96 Assessment & Plan Problem List: (1) Psychosis ICD Code: F29 Assessment & Plan Continue current psychotropics as ordered. Continue other medications and care as ordered. Justification for Cont. Inpt. Final discharge planning Discharge Planning Anticipate discharge to assisted living facility tomorrow, Tuesday. 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
[2016-09-23 16:53] VITALS: BP 156/85; PULSE 92; RESP 18; TEMP 98.7; O2SAT 96
[2016-09-23] MEDS: REMOVE OLD NICODERM (NICOTINE) PATCH T-DERMAL SCH (21:00)
[2016-09-23] MEDS: LORazepam 1 MG TAB PO PRN (21:30)
[2016-09-24] MEDS: PROPRANOLOL HCL 10 MG TAB PO SCH (05:29)
[2016-09-24 05:36] VITALS: BP 123/62; PULSE 89; RESP 18; TEMP 99.4; O2SAT 95
[2016-09-24] MEDS: carBAMazepine 200 MG TAB PO SCH ×2 (08:30→08:45)
[2016-09-24] MEDS: LISINOPRIL 20 MG TAB PO SCH (08:30)
[2016-09-24] MEDS ORDERED: CARB200T PO (10:36)
[2016-09-24] MEDS ORDERED: PROP10TA6 PO (10:36)
[2016-09-24] MEDS ORDERED: PALI156P IM (10:36)
[2016-09-24] MEDS ORDERED: LISI-515 PO (10:36)
--- NOTE | 2016-09-24 10:36 | HHI.DS ---
Psychiatry Discharge Summary Inpatient Psychiatric care?: Yes Advance Directive: No Reason Not Provided: PSYCHOTIC, THREW THEM AWAY Mental Health AdvanceDirective: No Health Care Proxy: No Admission Admission Date August 09, 2016 at 09:08 Admission Diagnosis: (1) Unspecified psychosis ICD Code: F29 Brief History The patient is a 60-year-old man, well known social/medical, psychiatric history, patient was [place] acted by police due to disorganized behavior in the street. On psychiatric evaluation patient is restless, very disorganized, tangential, talkative, with marked pressured speech, labile, affect, also paranoid and grandiose delusions. Patient explains that he comes from [place], he says that he took a bus in [place] and came to [place] " because I wanted to see the [place]". Patient says that he doesn't have psychiatric history, he denies bipolar disorder he denies schizophrenia and he says that he hates psychiatric. When was asked about medical history he says that he has history of TBI, and he has been taking steroids, but he doesn't clarify. Patient denies taking psychotropics. He described his mood as extremely happy, he says that he is God and the [place]ul[place] of the universe, for this reason he doesn't need to take any medications, at some point he also stated that he is better to everybody to be naked he was ready actually to disrobe. Patient was not redirectable verbally, extremely intrusive and agitated. Finally was medicated with olanzapine 10 mg IM to help him to calm down. Tobacco Use In Past 30 Days: Refused To Answer Alcohol Use: Never Hospital Course Patient was admitted to a locked, inpatient psychiatric unit. Appropriate precautions were in place throughout patient's hospital stay. A general medical consultation was obtained. Patient was seen and examined on the unit by psychiatry and also visited by counselor. Medications were adjusted. Patient had some improvement in his presenting psychiatric symptomatology. There was no evidence of any suicidality or homicidality on the inpatient unit. Patient's behavior improved with the benefit of psychopharmacologic treatment. Counselor has arranged for placement in assisted living facility. On the day of discharge: Patient seen and examined. Chart reviewed. Case discussed with nursing staff. Patient has been no behavioral problem overnight. On my examination today, the patient is calm and cooperative with examination. His thought process does remain somewhat disorganized, and I suspect that this represents his psychiatric baseline in this patient with a history of TBI. No issues with mood. He does not verbalize any suicidal or homicidal ideation, intent or plan. No audiovisual hallucinations. No onel delusional material. He is agreeable to going to assisted living facility. No side effects from medications. No physical complaints. 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 Patient has maximized benefit from this inpatient psychiatric hospital stay and will be discharged today to assisted living with psychiatric follow-up as arranged by counselor. Patient is also to follow-up with primary care. Patient to return to the psychiatric emergency room for any concerning psychiatric symptoms. Results Blood Pressure 123 / 62 Vital Signs Date Time Temp Pulse Resp B/P Pulse Ox O2 Delivery O2 Flow Rate FiO2 09/24/16 05:36 99.4 89 18 123/62 95 Item Value Date Time White Blood Count 7.9 TH/MM3 08/20/16 0959 Hemoglobin 15.7 GM/DL 08/20/16 0959 Platelet Count 401 TH/MM3 08/20/16 0959 Sodium Level 140 MEQ/L 08/20/16 0959 Potassium Level 4.1 MEQ/L # 08/21/16 0935 Chloride Level 102 MEQ/L 08/20/16 0959 Carbon Dioxide Level 29.6 MEQ/L 08/20/16 0959 Blood Urea Nitrogen 13 MG/DL 08/20/16 0959 Creatinine 0.82 MG/DL 08/20/16 0959 Aspartate Amino Transf (AST/SGOT) 12 U/L L 08/20/16 0959 Alanine Aminotransferase (ALT/SGPT) 21 U/L 08/20/16 0959 Alkaline Phosphatase 76 U/L 08/20/16 0959 Carbamazepine (Tegretol) Level 4.0 MCG/ML 09/09/16 0727 Summary of Procedures None done Imaging Last Impressions Head CT 08/08/16 0000 Signed Impressions: Service Date/Time: Monday, August 08, 2016 16:45 - CONCLUSION: Unremarkable study. K. Rojelio Green MD Pending results at discharge: No Medications # of Antipsychotic meds at D/C: 1 Approp Antipsych med options 1 - Minimum of three failed multiple trials of monotherapy. 2 - Documented plan to taper to monotherapy due to previous use of multiple meds OR cross-taper in progress at D/C. 3 - Documentation of augmentation of Clozapine. 4 - Justification other than those listed in allowable values 1-3, document here : Discharge Discharge Date: Sep 24, 2016 Discharge Diagnosis: (1) Psychosis Diagnosis: Principal (stable. H/o TBI.) ICD Code: F29 GAF on discharge is 45, likely patient's chronic level of function. Mental Status Exam at Disch Patient is casually dressed. He is fairly well groomed and appears to be maintaining basic hygiene. He is awake and alert and oriented to person. No motor abnormalities noted. Speech is somewhat rambling but within normal limits for rate, tone and volume. Mood is fair and affect is generally euthymic of somewhat childlike. Thought process remains somewhat disorganized, I suspect patient's chronic baseline. No delusional material elicited. No audiovisual hallucinations. No suicidal or homicidal ideation, intent or plan. Insight and judgment are chronically poor. Pt Condition on Discharge: Stable Discharge Disposition: [facility] Discharge Instructions Diet Instructions: As Tolerated, No Restrictions Activities you can perform: Weight Bearing as Gurjit Scheduled Appointment: as per counselor's notes New Medications: Paliperidone Palmitate Inj (Invega Sustenna Inj) 156 Mg/Ml Inj 156 MG IM Q28D This dose of Invega Sustenna is due on 09/29/2016. Mental Health # 1 Ref 0 VIAL Carbamazepine (Carbamazepine) 200 Mg Tab 200 MG PO Q12HR Mental Health Days 15 Ref 1 TAB Lisinopril (Lisinopril) 20 Mg Tab 20 MG PO DAILY Hold for SBP<110 or DBP<75. Blood Pressure Management Days 15 Ref 1 TAB Propranolol (Propranolol) 10 Mg Tab 10 MG PO Q8HR Hold for SBP<110 or DBP<75 or HR<60. Side effect management Days 15 Ref 1 TAB Discharge Time <= 30 minutes Discharge/Advance Care Plan Health Problems: (1) Psychosis Goals to promote your health * To prevent worsening of your condition and complications * To maintain your health at the optimal level Directions to meet your goals Take your medications as prescribed Follow your dietary instruction Follow activity as directed Keep your appointments as scheduled Take your immunizations and boosters as scheduled If your symptoms worsen call your PCP, if no PCP go to Urgent Care Center or Emergency Room For 01/11 questions related to your inpatient stay or results of tests pending at discharge, please contact Dr. Dominick Moreno at Smoking is Dangerous to Your Health. 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
== END 2016-09-24 12:55 | DRG 885 ==
LOC: NEPC 14:13 → NEDA 08-09 09:08 → H270 08-09 16:30
PROVIDERS: ADMIT Psychiatry & Neurology Psychiatry; ATTEND Psychiatry & Neurology Psychiatry
DX: F28 Other psychotic disorder not due to a substance or known physiological condition (principal); E72.20 Disorder of urea cycle metabolism, unspecified; I10 Essential (primary) hypertension; D17.0 Benign lipomatous neoplasm of skin and subcutaneous tissue of head, face and neck; R00.0 Tachycardia, unspecified; R15.9 Full incontinence of feces; Z91.14 Patient's other noncompliance with medication regimen; R32 Unspecified urinary incontinence; Z87.820 Personal history of traumatic brain injury
CPT/HCPCS: 70450; 80048; 80053; 80061; 80076; 80156; 80164; 80307; 82140; 82550; 83036; 84132; 85007; 85025; 85027; 96361; 96372; 96374; J1200; J1630; J2060; J2250; J2426; J3486; J7030